=== PATIENT | male | born 1945 | race Caucasian/White ===

== ENCOUNTER 2018-01-14 10:16 | Outpatient (CLI) | payer OTHER ==
[2018-01-14 18:13] LABS: ALBUMIN 4.3 g/dL (3.2-5.5); ALBUMIN/GLOBULIN RATIO 1.7 (1.0-2.2); ALKALINE PHOSPHATASE 64 IU/L (42-121); ALT ALANINE AMINOTRANSFERASE 23 IU/L (10-60); AST ASPARTATE AMINOTRANSFERASE 22 IU/L (10-42); BILIRUBIN,TOTAL 1.2 mg/dL (0.2-1.0); BUN - BLOOD UREA NITROGEN 12 mg/dL (6-20); CALCIUM 9.7 mg/dL (8.5-10.3); CARBON DIOXIDE - CO2 26 mmol/L (21-32); CHLORIDE 91 mmol/L (101-111); CHOL/HDL RATIO 2.8 (<5.0); CHOLESTEROL 118 mg/dL; CREATININE 0.8 mg/dL (0.6-1.2); GFR - MDRD 95 (>89); GLUCOSE 103 mg/dL (70-100); HDL CHOLESTEROL 42 mg/dL; LDL CHOLESTEROL,CALCULATED 52 mg/dL; LDL/HDL RATIO 1.2 (<3.6); SODIUM 125 mmol/L (135-145); TOTAL PROTEIN 6.8 g/dL (6.7-8.2); VLDL CHOLESTEROL 24 mg/dL
== END 2018-01-14 10:17 | disposition home or self-care (01) ==
LOC: LAB.F 10:16
PROVIDERS: ATTEND Internal Medicine
DX: I25.10 Atherosclerotic heart disease of native coronary artery without angina pectoris (principal)
CPT/HCPCS: 36415; 80053; 80061; 83721

== ENCOUNTER 2019-09-16 09:19 | Emergency (ER) | payer OTHER ==
--- NOTE | 2019-09-16 09:40 | ED Physician Documentation ---
PD HPI SYNCOPE - Stated complaint Stated Complaint: FEVER/GLF - Chief complaint Chief Complaint: Trauma Hd/Nk - History obtained from History obtained from: Patient - History of Present Illness Timing - onset: Last night Duration: Minutes (He states he got up from bed last night quickly to go to the bathroom felt lightheaded and then passed out and hit his head on the floor. He has tenderness in the right left forehead. He states his told him he was out for a couple of minutes. He awoke as she was calling EMS and he had her stop sending for help. He had some frontal headache after and today.. vomited x2 after fall. has some pain left trunk, upper arm and lateral hip today.) Preceding symptoms: Light headed. No: Chest pain Associated symptoms: Chest pain (sore lateral lower ribs), Nausea / vomiting. No: Abdominal pain Contributing factors: Just stood up (from sleep in bed) Injury occurred: Fell, Head injury. No: Neck injury Similar symptoms before: Has not had sx before Recently seen: Not recently seen Review of Systems Constitutional: reports: Fever (today), Chills Nose: denies: Rhinorrhea / runny nose, Congestion Throat: denies: Sore throat Cardiac: reports: Chest pain / pressure (lower ribs right and left) Respiratory: reports: Cough (mild today). denies: Dyspnea : denies: Dysuria, Frequency Skin: denies: Rash, Lesions, Laceration (s) Musculoskeletal: denies: Neck pain, Back pain Neurologic: reports: Syncope (just last night; feels okay today). denies: Focal weakness, Altered mental status PD PAST MEDICAL HISTORY - Past Medical History Past Medical History: No Cardiovascular: Hypertension, Atrial fibrillation Respiratory: None Neuro: None Endocrine/Autoimmune: None Musculoskeletal: None - Present Medications Home Medications: Ambulatory Orders Medication Instructions Recorded Confirmed Albuterol Sulfate [Albuterol 2 puffs IH QID #1 hfa.aer.ad 09/16/19 Sulfate Hfa] Amlodipine Besylate 5 mg PO DAILY 09/16/19 09/16/19 Aspirin 81 mg PO DAILY 09/16/19 09/16/19 Atorvastatin Calcium 40 mg PO DAILY 09/16/19 09/16/19 Benzonatate [Tessalon Perle] 100 - 200 mg PO TID PRN #30 capsule 09/16/19 Bumetanide 1 mg PO DAILY 09/16/19 09/16/19 Dabigatran Etexilate Mesylate 150 mg PO BID 09/16/19 09/16/19 [Pradaxa] Doxycycline Monohydrate 100 mg PO BID #14 tablet 09/16/19 Losartan [Cozaar] 25 mg PO DAILY 09/16/19 09/16/19 Metoprolol Tartrate 25 mg PO DAILY 09/16/19 09/16/19 Omeprazole 20 mg PO DAILY 09/16/19 09/16/19 Potassium Chloride 10 meq PO DAILY 09/16/19 09/16/19 Tamsulosin [Flomax] 0.4 mg PO DAILY 09/16/19 09/16/19 metFORMIN [Glucophage] 500 mg PO ONCE 09/16/19 09/16/19 - Allergies Allergies/Adverse Reactions: Allergies Allergy/AdvReac Type Severity Reaction Status Date / Time No Known Drug Allergies Allergy Verified 09/16/19 09:29 PD ED PE NORMAL - Vitals Vital signs reviewed: Yes - General General: Alert and oriented X 3, No acute distress, Well developed/nourished - HEENT HEENT: Pharynx benign - Neck Neck: Supple, no meningeal sign, No adenopathy - Cardiac Cardiac: No murmur. No: RRR (irregular but no murmur) - Respiratory Respiratory: No: Clear bilaterally (mostly clear with some mild exp delayed phase. No coarse sounds. Some tenderness lower posterolateral chest both sides, right more than left actually. No crepitance. ) - Abdomen Abdomen: Soft, Non tender - Extremities Extremities: Other (The right lateral hip is some tender without any deformity. He has a good range of motion of the hip no pain with walking. The right lateral upper arm shows some bruising along the lateral biceps area. No joint pain in the elbow or shoulder. He has full range of motion extension of the shoulder and elbow.) Results - Vitals Vitals: Vital Signs - 24 hr 09/16/19 09/16/19 09/16/19 09:29 09:32 10:02 Temperature 38.7 C H 37.9 C H Heart Rate 107 H 93 82 Heart Rate [ Sitting] Heart Rate [ Standing] Heart Rate [ Supine] Respiratory 20 16 16 Rate Blood Pressure 144/69 H 132/78 H 132/74 H Blood Pressure [Sitting] Blood Pressure [Standing] Blood Pressure [Supine] O2 Saturation 94 98 98 09/16/19 09/16/19 09/16/19 10:30 10:34 11:00 Temperature 37.7 C H Heart Rate 86 86 Heart Rate [ 97 Sitting] Heart Rate [ 102 H Standing] Heart Rate [ 86 Supine] Respiratory 16 16 Rate Blood Pressure 132/86 H 134/78 H Blood Pressure 118/77 [Sitting] Blood Pressure 115/69 [Standing] Blood Pressure 134/73 H [Supine] O2 Saturation 98 99 09/16/19 09/16/19 09/16/19 11:30 12:00 12:30 Temperature 36.9 C Heart Rate 86 85 85 Heart Rate [ Sitting] Heart Rate [ Standing] Heart Rate [ Supine] Respiratory 16 16 16 Rate Blood Pressure 132/68 H 130/74 132/80 H Blood Pressure [Sitting] Blood Pressure [Standing] Blood Pressure [Supine] O2 Saturation 99 98 100 09/16/19 13:03 Temperature 36.9 C Heart Rate 85 Heart Rate [ Sitting] Heart Rate [ Standing] Heart Rate [ Supine] Respiratory 16 Rate Blood Pressure 132/80 H Blood Pressure [Sitting] Blood Pressure [Standing] Blood Pressure [Supine] O2 Saturation 99 Oxygen O2 Source Room air - Labs Labs: Laboratory Tests 09/16/19 09/16/19 09/16/19 09:58 09:58 09:58 WBC 13.2 H RBC 4.09 L Hgb 13.3 L Hct 37.9 L MCV 92.7 MCH 32.5 H MCHC 35.1 RDW 13.4 Plt Count 185 MPV 10.1 Neut # (Auto) 11.5 H Lymph # (Auto) 0.6 L [place] # (Auto) 0.8 Eos # (Auto) 0.0 Baso # (Auto) 0.0 Absolute Nucleated RBC 0.00 Nucleated RBC % 0.0 PT 13.7 H INR 1.2 APTT 37.3 H Sodium 136 Potassium 3.5 Chloride 105 Carbon Dioxide 23 Anion Gap 8.0 BUN 19 Creatinine 0.9 Estimated GFR (MDRD) 83 L Glucose 139 H Lactic Acid Calcium 9.3 Magnesium 1.6 L Total Bilirubin 1.5 H AST 22 ALT 24 Alkaline Phosphatase 82 Total Protein 7.1 Albumin 4.2 Globulin 2.9 Albumin/Globulin Ratio 1.4 Lipase 30 Urine Color Urine Clarity Urine pH Ur Specific [place] Urine Protein Urine Glucose (UA) Urine Ketones Urine Occult Blood Urine Nitrite Urine Bilirubin Urine Urobilinogen Ur Leukocyte Esterase Ur Microscopic Review Urine Culture Comments 09/16/19 09/16/19 11:04 11:05 WBC RBC Hgb Hct MCV MCH MCHC RDW Plt Count MPV Neut # (Auto) Lymph # (Auto) [place] # (Auto) Eos # (Auto) Baso # (Auto) Absolute Nucleated RBC Nucleated RBC % PT INR APTT Sodium Potassium Chloride Carbon Dioxide Anion Gap BUN Creatinine Estimated GFR (MDRD) Glucose Lactic Acid 1.4 Calcium Magnesium Total Bilirubin AST ALT Alkaline Phosphatase Total Protein Albumin Globulin Albumin/Globulin Ratio Lipase Urine Color DARK YELLOW Urine Clarity CLEAR Urine pH 6.0 Ur Specific [place] 1.020 Urine Protein NEGATIVE Urine Glucose (UA) NEGATIVE Urine Ketones NEGATIVE Urine Occult Blood NEGATIVE Urine Nitrite NEGATIVE Urine Bilirubin NEGATIVE Urine Urobilinogen 1 (NORMAL) Ur Leukocyte Esterase NEGATIVE Ur Microscopic Review NOT INDICATED Urine Culture Comments NOT INDICATED - Rads (name of study) head CT Radiology: Prelim report reviewed (no ICH nor acute process), See rad report Chest CT Radiology: Prelim report reviewed (Likely nondisplaced fracture of the 10th rib. Diffuse small infiltrates with groundglass appearance most likely consistent with viral pneumonia), See rad report PD MEDICAL DECISION MAKING - ED course Complexity details: reviewed results (No intracranial hemorrhage. His chest x- ray shows a possible rib fracture. He is a bit tender in the area. Clinically he is stable with it. He does have infiltrates consistent with Ashlyn pneumonia.), considered differential (The patient is on blood thinners and did have a syncopal episode and hit his head. CT of the head will be done to ensure no intracranial hemorrhage. He is not having any notable concussive symptoms into today. He is sore in his arm and hip which have good range of motion and no bony tenderness. He has some tenderness in the right lower correction left lower chest and also has some cough and fever. He will be in the scanner for his head anyway so we can more accurately assess his cough and fever with a CT of the chest as well as evaluate for any rib injuries.), d/w patient Departure - Departure Disposition: 01 Home, Self Care Clinical Impression: Postural syncope, Anticoagulant long-term use, Pneumonia due to COVID-19 virus Head contusion Qualifiers: Encounter type: initial encounter Contusion of head detail: scalp Qualified Code(s): S00.03XA - Contusion of scalp, initial encounter Rib fracture Qualifiers: Encounter type: initial encounter Rib fracture type: single rib Fracture type: closed Laterality: unspecified laterality Qualified Code(s): S22.39XA - Fracture of one rib, unspecified side, initial encounter for closed fracture Condition: Stable Record reviewed to determine appropriate education?: Yes Instructions: ED Pneumonia Adult Follow-Up: Raffi Simms MD [Primary Care Provider] - Prescriptions: Albuterol Sulfate [Albuterol Sulfate Hfa] 2 puffs IH QID #1 hfa.aer.ad Benzonatate [Tessalon Perle] 100 - 200 mg PO TID PRN #30 capsule PRN Reason: Cough Doxycycline Monohydrate 100 mg PO BID #14 tablet Comments: CT did not show any signs of bleeding or other injury findings. It does sound like he had some mild concussive symptoms with being knocked out and nauseous. Light activity only for a day or 2. Your CT of the chest showed a likely nondisplaced fracture. As minimal symptoms as you have, I think just Tylenol every 4-6 hours for that is reasonable. Adequate hydration but do not over hydrate at home. Regular food intake. Your CT scan did show changes consistent with coded pneumonia. Sometimes there can be secondary bacterial infections in with that as well so we will treated with an antibiotic, and inhaler, and medicine for the cough. Isolate yourself from your a bit as you can in the house and avoid others for the time being. The CDC recommends when you are having no fevers and aches and less cough and then 3 days later to be able to be less quarantined though there may still be some viral shedding for a couple of weeks. Return if worsening breathing. Discharge Date/Time: 09/16/19 13:04
[2019-09-16] MEDS ORDERED: ACETAMINOPHEN 325 MG TABLET PO STA (10:13)
[2019-09-16] MEDS ORDERED: SODIUM CHLORIDE 0.9% 500 ML IV ONE (10:33)
[2019-09-16 10:41] LABS: BASOPHILS % (AUTO) 0.2 %; EOSINOPHILS % (AUTO) 0.2 %; HGB - HEMOGLOBIN 13.3 g/dL (14.0-18.0); LYMPHOCYTES # (AUTO) 0.6 10^3/uL (1.5-3.5); LYMPHOCYTES % (AUTO) 4.7 %; MEAN CORPUSCULAR HEMOGLOBIN 32.5 pg (27.0-31.0); MEAN CORPUSCULAR HGB CONC 35.1 g/dL (32.0-36.0); MEAN CORPUSCULAR VOLUME 92.7 fL (80.0-94.0); MEAN PLATELET VOLUME 10.1 fL (7.4-11.4); MONOCYTES # (AUTO) 0.8 10^3/uL (0.0-1.0); MONOCYTES % (AUTO) 6.4 %; NEUTROPHILS # (AUTO) 11.5 10^3/uL (1.5-6.6); NEUTROPHILS % (AUTO) 87.3 %; PLT - PLATELET COUNT 185 10^3/uL (130-450); RED BLOOD COUNT 4.09 10^6/uL (4.70-6.10); RED CELL DISTRIBUTION WIDTH 13.4 % (12.0-15.0); WHITE BLOOD COUNT 13.2 x10^3/uL (4.8-10.8)
[2019-09-16 10:46] LABS: INR 1.2 (0.8-1.2); PT - PROTHROMBIN TIME 13.7 secs (9.9-12.6)
[2019-09-16 10:50] LABS: ALBUMIN 4.2 g/dL (3.2-5.5); ALBUMIN/GLOBULIN RATIO 1.4 (1.0-2.2); BILIRUBIN,TOTAL 1.5 mg/dL (0.2-1.0); CALCIUM 9.3 mg/dL (8.5-10.3); CREATININE 0.9 mg/dL (0.6-1.2); MAGNESIUM 1.6 mg/dL (1.7-2.8); TOTAL PROTEIN 7.1 g/dL (6.7-8.2)
[2019-09-16 10:53] LABS: PARTIAL THROMBOPLASTIN TIME 37.3 secs (24.9-33.3)
--- NOTE | 2019-09-16 11:07 | CT Report ---
Reason: fall/hit head; on Pradaxa Procedure Date: 09/16/2019 Accession Number: [id number] / [id number] Procedure: CT - HEAD WO CPT Code: Final Report FULL RESULT: EXAM: CT HEAD EXAM DATE: 09/16/2019 10:51 AM. CLINICAL HISTORY: Fall/hit head; on Pradaxa. COMPARISON: None. TECHNIQUE: Multiaxial CT images were obtained from the foramen magnum to the vertex. Reformats: Sagittal and coronal. IV contrast: None. In accordance with CT protocol optimization, one or more of the following dose reduction techniques were utilized for this exam: automated exposure control, adjustment of mA and/or KV based on patient size, or use of iterative reconstructive technique. FINDINGS: Parenchyma: No intraparenchymal hemorrhage. No evidence of mass, midline shift, or CT findings of infarction. Poe-white differentiation is distinct. Extraaxial Spaces: Normal for age. No subdural or epidural collections identified. Note is made of a partially empty sella turcica. Ventricles: Normal in size and position. Sinuses and Orbits: Imaged paranasal sinuses, orbits, and mastoids show no significant abnormality. Bones: No evidence of fracture or calvarial defect. Other: Moderate vascular calcifications are seen involving intracranial ICA. IMPRESSION: 1. Negative noncontrast CT scan of the head. No acute abnormality. RADIA
--- NOTE | 2019-09-16 11:29 | CT Report ---
Reason: fall last night Procedure Date: 09/16/2019 Accession Number: [id number] / [id number] Procedure: CT - CHEST WO CPT Code: Final Report FULL RESULT: EXAM: CT CHEST EXAM DATE: 09/16/2019 10:55 AM. CLINICAL HISTORY: Fall last night. COMPARISONS: None. TECHNIQUE: Routine helical CT imaging was performed through the chest. IV contrast: None. Reconstructions: Coronal and sagittal. In accordance with CT protocol optimization, one or more of the following dose reduction techniques were utilized for this exam: automated exposure control, adjustment of mA and/or KV based on patient size, or use of iterative reconstructive technique. FINDINGS: Lungs/Pleura: Moderate severity right middle lobe consolidation with moderate consolidation and groundglass opacity within the posterior medial right lower lobe and associated peribronchial thickening. There is very mild perivascular groundglass and nodular infiltrate within the left lower lobe and mild nodular infiltrate within both upper lobes. No central obstructive lesions demonstrated. No pleural effusion. No pneumothorax. Mediastinum: There are multiple small and borderline enlarged mediastinal lymph nodes, maximum short axis 1.0 cm. No hilar or axillary adenopathy. Borderline cardiac enlargement. No pericardial effusion. Coronary artery calcifications and possible grafts demonstrated. Status post median sternotomy. Mild streaky and linear density within the anterior mediastinal/retrosternal fat is likely postoperative in nature. Bones: Probable nondisplaced posterolateral left 10th rib fracture. No other definite acute abdomen maladies. Findings consistent with old, healed right rib fractures. Visualized Abdomen: There is a 1.4 cm presumed splenule. No definite acute abdomen. Other: None. IMPRESSION: 1. Multifocal pulmonary densities including consolidation within the right middle lobe and right lower lobe and additional mild groundglass opacities and nodular infiltrates within the left lower lobe and bilateral upper lobes. Multifocal pneumonia is a primary consideration. 2. Probable nondisplaced posterolateral left 10th rib fracture. 3. Borderline mediastinal adenopathy. RADIA
[2019-09-16 12:21] LABS: BILIRUBIN,URINE NEGATIVE (NEGATIVE); GLUCOSE, URINE (UA) NEGATIVE (NEGATIVE); KETONES,URINE (UA) NEGATIVE (NEGATIVE); LEUKOCYTE ESTERASE, URINE NEGATIVE (NEGATIVE); NITRITE,URINE NEGATIVE (NEGATIVE); OCCULT BLOOD,URINE NEGATIVE (NEGATIVE); PROTEIN,URINE NEGATIVE (NEGATIVE); UROBILINOGEN,URINE 1 (NORMAL) E.U./dL (NORMAL)
[2019-09-16 12:23] LABS: CLARITY,URINE CLEAR (CLEAR)
[2019-09-16 13:04] VITALS: BP 132/80
== END 2019-09-16 13:04 | disposition home or self-care (01) ==
LOC: ED 09:19
DX: U07.1 COVID-19 (principal); J12.89 Other viral pneumonia; S00.03XA Contusion of scalp, initial encounter; S22.32XA Fracture of one rib, left side, initial encounter for closed fracture; W18.30XA Fall on same level, unspecified, initial encounter; Y92.013 Bedroom of single-family (private) house as the place of occurrence of the external cause; I48.91 Unspecified atrial fibrillation; Z79.01 Long term (current) use of anticoagulants; I10 Essential (primary) hypertension; M25.551 Pain in right hip; S40.021A Contusion of right upper arm, initial encounter
CPT/HCPCS: 36415; 70450; 71250; 80053; 81003; 83605; 83690; 83735; 85025; 85610; 85730; 87635; 99284; A9270; 81001; 81599; 87086

== ENCOUNTER 2019-12-06 09:29 | Outpatient (CLI) | payer MEDICARE, OTHER ==
--- NOTE | 2019-12-06 10:07 | SLEEP CARE CONSULTATION ---
Information from patient questionnaire entered by Melba Thompson. I have reviewed and concur with the information entered by Melba Thompson. This document represents the service I personally performed and the decisions made by me, Deuce Mejia MD, [facility]. History of Present Illness Service Date and Time: 12/06/2019928 Reason for Visit: New patient Chief Complaint: reports: Snoring, Excessive daytime sleepiness (AT TIMES), Observed pauses in breathing Duration of Symptoms: 20 years Usual bedtime: 2200 Time it takes to fall asleep: 5 minutes Snores at night: Yes Observed to quit breathing while asleep: Yes Sleeps alone due to snoring: No Number of times waking at night: 1-3 Reasons for waking at night: reports: Bathroom, Other (sometimes reflux) Recalls having dreams: Yes Usually gets out of bed at: [id number] Feels refreshed in the morning: Yes Morning headache: No Sleepy or fatigued during the day: No (early evening, yes) Ever fallen asleep while driving: Yes (once) Takes day naps: No Prior sleep studies: Yes Additional HPI information: The patient was diagnosed with severe MARJORIE in 2007. The AHI was 44. He tried CPAP for just a few days and quit because he was not able to fall asleep with it on. In 2013 he went back to the [facility] and was fitted with an oral appliance. He also could not tolerate it. He is here today because his insists that he be treated. She sees him snore and quit breathing. He has hypertension and atrial fibrillation. 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 Patient is and lives in [place]. Have you smoked in the past 12 months: No Cigarettes per day (20/pack): 5 Quit date: 1992 Alcohol use: No Caffeine use: No Allergies and Home Medications Drug allergies reviewed: Yes Home medication list reviewed: Yes Review of Systems Weight gain over past 5 years: 20 Weight loss over past 5 years: 10 Cardiovascular: reports: high blood pressure (without meds), irregular heart rate or pulse, leg or foot swelling Respiratory: denies: shortness of breath, wheeze, sputum production, chronic cough, other Gastrointestinal: reports: heartburn (on medication) Urinary: denies: incontinence, frequency, urgency, impotence, other Neurological: denies: headaches, seizure, head trauma, disorientation, speech dysfunction, gait or balance problems, fainting or unconsciousness, other Psychiatric: denies: Attention Deficit Hyperactivity, anxiety, depression, mood disorder, claustrophobia, other Ear/Nose/Throat: denies: nasal congestion, sinus problems, nose bleeds, dry mouth/throat, hoarseness, injury to nose, tonsillectomy, wisdom teeth removed, other Endocrine: denies: thyroid disease, history of goiter, sluggishness, too hot or cold, excessive thirst, increased appetite, increased urination, unexplained weakness, other Musculoskeletal: reports: neck pain (stiff when turning) Immunologic: denies: sneezing, rash, itching, allergies to food or environment, other Physical Exam Vital signs obtained and entered by: Exam was not performed due to the COVID-19 pandemic. Height: 5 ft 8 in Weight: 220 lb Body Mass Index: 33.4 BMI Classification: Obese Impression and Plan IMPRESSION: 1. Obstructive Sleep Apnea-Hypopnea Syndrome, severe, as previously diagnosed. He is symptomatic for loud and irregular snoring, unrefreshed sleep, and daytime hypersomnolence. Narrow oropharynx and obesity are common predisposing factors for obstructive sleep apnea-hypopnea syndrome. Pathophysiology of sleep- disordered breathing was discussed. I recommend proceeding to polysomnography to confirm the diagnosis and to assess severity. If he has significant sleep disordered breathing, a manual CPAP titration study will also be performed to find the optimal treatment pressure. I informed the patient of what the sleep studies involve and after some discussion, he agreed to proceed. Plan: 1. Schedule an in-laboratory polysomnography. 2. Avoid long distance driving or when feeling sleepy. 3. Avoid alcohol, sedative and muscle relaxant around bedtime. 4. Attempt to lose weight. 5. Return in 1 to 2 weeks after the study to discuss results and initiate therapy. Visit Type: In Office Time Spent with Patient (minutes): 15 Provider Statement: I spent 100% of the Face to Face Visit with the patient with greater than 50% spent counseling the patient and coordination of care.
== END 2019-12-06 09:30 | disposition home or self-care (01) ==
LOC: SC 09:29
PROVIDERS: ATTEND Internal Medicine Pulmonary Disease
DX: G47.33 Obstructive sleep apnea (adult) (pediatric) (principal); I10 Essential (primary) hypertension; I49.9 Cardiac arrhythmia, unspecified; E66.9 Obesity, unspecified; Z68.33 Body mass index [BMI] 33.0-33.9, adult
CPT/HCPCS: 99203; 99212

== ENCOUNTER 2019-12-22 20:25 | Outpatient (CLI) | payer OTHER | END 2019-12-22 20:26 | disposition home or self-care (01) | LOC: SC 20:25 | PROVIDERS: ATTEND Internal Medicine Pulmonary Disease | DX: G47.33 Obstructive sleep apnea (adult) (pediatric) (principal); I48.92 Unspecified atrial flutter | CPT/HCPCS: 95810 ==

== ENCOUNTER 2020-01-17 17:20 | Inpatient (IN) | payer OTHER, MEDICARE ==
[2020-01-17 17:46] LABS: BILIRUBIN,URINE NEGATIVE (NEGATIVE); GLUCOSE, URINE (UA) NEGATIVE (NEGATIVE); KETONES,URINE (UA) NEGATIVE (NEGATIVE); LEUKOCYTE ESTERASE, URINE LARGE (NEGATIVE); NITRITE,URINE POSITIVE (NEGATIVE); OCCULT BLOOD,URINE LARGE (NEGATIVE); PH,URINE 6.5 PH (5.0-7.5); PROTEIN,URINE TRACE mg/dL (NEGATIVE); UROBILINOGEN,URINE 0.2 (NORMAL) E.U./dL (NORMAL)
[2020-01-17 17:48] LABS: CLARITY,URINE CLOUDY (CLEAR)
[2020-01-17 17:52] LABS: BASOPHILS % (AUTO) 0.3 %; EOSINOPHILS % (AUTO) 0.1 %; HGB - HEMOGLOBIN 14.4 g/dL (14.0-18.0); LYMPHOCYTES # (AUTO) 1.4 10^3/uL (1.5-3.5); LYMPHOCYTES % (AUTO) 10.4 %; MEAN CORPUSCULAR HEMOGLOBIN 33.2 pg (27.0-31.0); MEAN CORPUSCULAR HGB CONC 35.5 g/dL (32.0-36.0); MEAN CORPUSCULAR VOLUME 93.5 fL (80.0-94.0); MONOCYTES # (AUTO) 0.9 10^3/uL (0.0-1.0); MONOCYTES % (AUTO) 6.3 %; NEUTROPHILS # (AUTO) 11.3 10^3/uL (1.5-6.6); PLT - PLATELET COUNT 147 10^3/uL (130-450); RED BLOOD COUNT 4.34 10^6/uL (4.70-6.10); RED CELL DISTRIBUTION WIDTH 12.2 % (12.0-15.0); WHITE BLOOD COUNT 13.7 x10^3/uL (4.8-10.8)
[2020-01-17 17:53] LABS: BACTERIA,URINE Many /HPF (None Seen); RBC,URINE Y /HPF (0-5); SQUAMOUS EPITHELIAL CELL,UR NONE SEEN (<= Few); WBC CLUMPS,URINE PRESENT
--- NOTE | 2020-01-17 17:54 | ED Physician Documentation ---
History of Present Illness - Stated complaint Stated Complaint: MALE - Chief complaint Chief Complaint: UTI - History obtained from History obtained from: Patient - History of Present Illness Timing: How many days ago (3) - Additonal information Additional information: 74-year-old male presents to the emergency department with 3 days of dysuria, urinary urgency and frequency. He reports that this morning he had a fever of 101. He denies any nausea or vomiting. He does endorse that he has had diarrhea for the last 2 days. he denies dyspnea or chest pain. he has baseline unchage pedal edema since a CABG in 2018 Past medical history most significant for hypertension, atrial fibrillation and a four-vessel CABG in March 2019. meds: Metformin, losartan, metoprolol, Lipitor, omeprazole, Flomax, Bumex, Pradaxa, potassium chloride 1750: Patient meets the criteria for sepsis with fever, tachycardia as well as an infection in the urine. Sepsis protocol initiated 30 ml/kg of IVF. Ceftriaxone for UTI. pertinent labs pending 183: Notified by nursing staff that patient has significant hypertension during the fluid resuscitation. Given that he has no elevation in his lactic acid we will stop the fluid bolus at this time. 20 mg of labetalol was ordered Review of Systems Constitutional: reports: Fever, Chills Ears: denies: Loss of hearing, Ear pain Nose: denies: Rhinorrhea / runny nose Throat: denies: Dental pain / toothache Cardiac: denies: Chest pain / pressure, Palpitations Respiratory: denies: Dyspnea, Cough GI: reports: Abdominal Pain, Diarrhea. denies: Abdominal Swelling, Nausea, Vomiting, Constipation, Hematemesis, Bloody / black stool : reports: Dysuria, Frequency, Hesitancy. denies: Hematuria Skin: denies: Rash, Lesions Musculoskeletal: denies: Extremity pain, Joint pain Neurologic: reports: Generalized weakness, Focal weakness, Numbness PD PAST MEDICAL HISTORY - Past Medical History Cardiovascular: Hypertension, Atrial fibrillation Respiratory: None Neuro: None Endocrine/Autoimmune: None GI: None : None HEENT: None Psych: None Musculoskeletal: None Derm: None - Past Surgical History Past Surgical History: No - Present Medications Home Medications: Ambulatory Orders Medication Instructions Recorded Confirmed Albuterol Sulfate [Albuterol 2 puffs IH QID #1 hfa.aer.ad 09/16/19 Sulfate Hfa] Amlodipine Besylate 5 mg PO DAILY 09/16/19 09/16/19 Aspirin 81 mg PO DAILY 09/16/19 09/16/19 Atorvastatin Calcium 40 mg PO DAILY 09/16/19 09/16/19 Benzonatate [Tessalon Perle] 100 - 200 mg PO TID PRN #30 capsule 09/16/19 Bumetanide 1 mg PO DAILY 09/16/19 09/16/19 Dabigatran Etexilate Mesylate 150 mg PO BID 09/16/19 09/16/19 [Pradaxa] Doxycycline Monohydrate 100 mg PO BID #14 tablet 09/16/19 Losartan [Cozaar] 25 mg PO DAILY 09/16/19 09/16/19 Metoprolol Tartrate 25 mg PO DAILY 09/16/19 09/16/19 Omeprazole 20 mg PO DAILY 09/16/19 09/16/19 Potassium Chloride 10 meq PO DAILY 09/16/19 09/16/19 Tamsulosin [Flomax] 0.4 mg PO DAILY 09/16/19 09/16/19 metFORMIN [Glucophage] 500 mg PO ONCE 09/16/19 09/16/19 - Allergies Allergies/Adverse Reactions: Allergies Allergy/AdvReac Type Severity Reaction Status Date / Time No Known Drug Allergies Allergy Verified 09/16/19 09:29 - Social History Does the pt smoke?: No Smoking Status: Never smoker Does the pt drink ETOH?: No Does the pt have substance abuse?: No PD ED PE EXPANDED - General General: Alert. No: No acute distress, Well developed/nourished - HEENT HEENT: Atraumatic - Neck Neck: Supple w/out meningeal sx, No tenderness. No: Stiff neck, Brudzinki's, Thyroid enlarged / mass, Soft tissue TTP - Cardiac Cardiac: Regular Rate, Tachy, Radial strong equal, Femoral strong equal, Pedal strong equal, Cap refill < 2 sec - Respiratory Respiratory: Clear to ausultation ross. No: Distress, Labored - Abdomen Abdomen: Normal Bowel sounds, Suprapubic - Back Back: Normal exam, Normal ROM. No: CVA TTP right, CVA TTP left - Derm Derm: Warm and dry - Neuro Neuro: Alert and Oriented X 3. No: Confused - GCS Eye Opening: Spontaneous Motor: Obeys Commands Verbal: Oriented Total: 15 Results - Vitals Vitals: Vital Signs - 24 hr 01/17/20 01/17/20 01/17/20 17:23 18:05 18:35 Temperature 37.8 C H Heart Rate 131 H 118 H 115 H Respiratory 18 29 H 24 Rate Blood Pressure 145/77 H 183/118 H 223/124 H O2 Saturation 97 99 100 01/17/20 01/17/20 01/17/20 18:55 19:03 19:17 Temperature 38.2 C H Heart Rate 119 H 109 H 111 H Respiratory 26 H 27 H 25 H Rate Blood Pressure 182/102 H 182/102 H 192/106 H O2 Saturation 99 98 97 01/17/20 19:24 Temperature Heart Rate 110 H Respiratory 24 Rate Blood Pressure 202/117 H O2 Saturation 99 Oxygen O2 Source Room air - Labs Labs: Laboratory Tests 01/17/20 01/17/20 01/17/20 17:40 17:40 17:40 WBC 13.7 H RBC 4.34 L Hgb 14.4 Hct 40.6 L MCV 93.5 MCH 33.2 H MCHC 35.5 RDW 12.2 Plt Count 147 MPV 10.0 Neut # (Auto) 11.3 H Lymph # (Auto) 1.4 L Ulster # (Auto) 0.9 Eos # (Auto) 0.0 Baso # (Auto) 0.0 Absolute Nucleated RBC 0.00 Nucleated RBC % 0.0 Sodium 134 L Potassium 3.5 Chloride 99 L Carbon Dioxide 27 Anion Gap 8.0 BUN 17 Creatinine 1.1 Estimated GFR (MDRD) 66 L Glucose 139 H Lactic Acid Calcium 9.6 Total Bilirubin 2.2 H AST 21 ALT 26 Alkaline Phosphatase 85 Total Protein 8.2 Albumin 4.7 Globulin 3.5 Albumin/Globulin Ratio 1.3 Lipase 29 Urine Color YELLOW Urine Clarity CLOUDY Urine pH 6.5 Ur Specific Hewett 1.010 Urine Protein TRACE Urine Glucose (UA) NEGATIVE Urine Ketones NEGATIVE Urine Occult Blood LARGE H Urine Nitrite POSITIVE H Urine Bilirubin NEGATIVE Urine Urobilinogen 0.2 (NORMAL) Ur Leukocyte Esterase LARGE H Urine RBC Y Urine WBC >25 H Urine WBC Clumps PRESENT Ur Squamous Epith Cells NONE SEEN Urine Bacteria Many H Ur Microscopic Review INDICATED Urine Culture Comments INDICATED 01/17/20 17:40 WBC RBC Hgb Hct MCV MCH MCHC RDW Plt Count MPV Neut # (Auto) Lymph # (Auto) Ulster # (Auto) Eos # (Auto) Baso # (Auto) Absolute Nucleated RBC Nucleated RBC % Sodium Potassium Chloride Carbon Dioxide Anion Gap BUN Creatinine Estimated GFR (MDRD) Glucose Lactic Acid 1.0 Calcium Total Bilirubin AST ALT Alkaline Phosphatase Total Protein Albumin Globulin Albumin/Globulin Ratio Lipase Urine Color Urine Clarity Urine pH Ur Specific Hewett Urine Protein Urine Glucose (UA) Urine Ketones Urine Occult Blood Urine Nitrite Urine Bilirubin Urine Urobilinogen Ur Leukocyte Esterase Urine RBC Urine WBC Urine WBC Clumps Ur Squamous Epith Cells Urine Bacteria Ur Microscopic Review Urine Culture Comments PD MEDICAL DECISION MAKING - ED course Complexity details: reviewed results, considered differential, d/w patient, d/w family ED course: 74-year-old gentleman presents to the emergency department with 3 days of dysuria urgency and frequency. He also notes a fever at home of 101 this a.m. On initial presentation he was fairly tachycardic with a heart rate in the 130s. His urine was noted to be positive for infection. We did initiate the sepsis protocol early and diagnosed sepsis properly after presentation. - While receiving the fluid bolus patient was noted to develop pretty significant hypertension therefore the fluid bolus was stopped. It should be noted that his lactic acid was normal. - I have lower suspicion for acute pyelonephritis as this gentleman has no flank pain. Prostatitis remains in the differential but the antibiotics of choice for both it remains the same. Will defer gentamicin in this gentleman as my suspicion for pseudomonal coinfection is relatively low - I spoken to [facility] hospitalist Dr. Neumann who has agreed to admit the patient. I discussed findings with family. Departure - Departure Disposition: 66 [facility] DC/Xfer Clinical Impression: UTI (urinary tract infection) Qualifiers: Urinary tract infection type: acute cystitis Hematuria presence: without hematuria Qualified Code(s): N30.00 - Acute cystitis without hematuria Sepsis Qualifiers: Sepsis type: sepsis due to unspecified organism Sepsis acute organ dysfunction status: without acute organ dysfunction Qualified Code(s): A41.9 - Sepsis, unspecified organism
[2020-01-17] MEDS ORDERED: LACTATED RINGERS 2,857.62 ML IV STA (17:56)
[2020-01-17] MEDS ORDERED: cefTRIAXone 1 GM in SODIUM CHLORIDE 0.9% MINIBAG 100 ML IV STA (17:56)
[2020-01-17 18:07] LABS: ALBUMIN 4.7 g/dL (3.2-5.5); ALBUMIN/GLOBULIN RATIO 1.3 (1.0-2.2); BILIRUBIN,TOTAL 2.2 mg/dL (0.2-1.0); CALCIUM 9.6 mg/dL (8.5-10.3); CREATININE 1.1 mg/dL (0.6-1.2); TOTAL PROTEIN 8.2 g/dL (6.7-8.2)
[2020-01-17] MEDS ORDERED: cefTRIAXone 1 GM VIAL ONE (18:09)
[2020-01-17] MEDS ORDERED: LABETALOL 20 MG/4 ML SYRINGE IVP STA ×2 (18:43→19:26)
[2020-01-17] MEDS ORDERED: ONDANSETRON 4 MG/2 ML VIAL IVP PRN (19:22)
[2020-01-17] MEDS ORDERED: oxyCODONE 5 MG TABLET PO PRN (19:22)
[2020-01-17] MEDS ORDERED: SODIUM CHLORIDE FLUSH 0.9% 10 ML SYRINGE IVP PRN (19:22)
--- NOTE | 2020-01-17 19:26 | HISTORY & PHYSICAL EXAMINATION ---
Chief Complaint - Chief Complaint Chief Complaint: fever, dysuria, urgency History of Present Illness - Admitted From Admitted From:: [facility] ED - History Obtained From Records Reviewed: yes History obtained from: patient - History of Present Illness HPI Comment/Other: Patient is a 74-year-old male with history of CAD status post 11 stents and a quadruple bypass, hyperlipidemia, atrial fibrillation on Pradaxa, prediabetic, GERD and BPH who presented to the ED with complaints of dysuria and increased urinary frequency. He also reports change in the coloration of his urine. The initial stream appears cloudy and clears up as he continues to urinate. His symptoms started 2 days ago. He also reported temperature of 101 Fahrenheit at home. He has been having general body aches for the past couple of days. He called his primary care physician who advised him to come to the emergency room for evaluation. He was found to be tachycardic in the emergency room with a heart rate as high as 120s. He also had a WBC of 13.7 and urinanalysis showed Positive urine nitrites greater than 25 white blood cells and many bacteria. As a result of his clinical appearance he was presented for admission for further treatment. At bedside he is resting comfortably. He denies chest pain, dyspnea, abdominal pain, nausea or vomiting. He has a trace to +1 lower extremity edema bilaterally. History - Past Medical History Cardiovascular: reports: Hypertension, Coronary artery disease (s/p 11 stents and a quadriple bypass), Atrial fibrillation Respiratory: reports: None Neuro: reports: None Endocrine/Autoimmune: reports: Other (pre-diabetic) GI: reports: GERD : reports: Benign prostate hypertrophy HEENT: reports: None Psych: reports: None Musculoskeletal: reports: None Derm: reports: None MRSA Hx?: No - Past Surgical History General: reports: Appendectomy Cardiovascular: reports: CABG, Coronary stent, Other - Family & Social History Family History Comment/Other: Extensive family history of coronary artery diseas e and hyperlipidemia. He is 1 of 11 children who all have coronary artery disease. His father from an [place]. Living arrangement: At home Living Situation: With spouse/s.o. Social History Notes: He denies alcohol, tobacco or illicit drug use. 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 - POLST Patient has POLST: No POLST Status: Full Code Meds/Allgy - Home Medications Home Medications: Ambulatory Orders Medication Instructions Recorded Confirmed Albuterol Sulfate [Albuterol 2 puffs IH QID #1 hfa.aer.ad 09/16/19 Sulfate Hfa] Amlodipine Besylate 5 mg PO DAILY 09/16/19 09/16/19 Aspirin 81 mg PO DAILY 09/16/19 09/16/19 Atorvastatin Calcium 40 mg PO DAILY 09/16/19 09/16/19 Benzonatate [Tessalon Perle] 100 - 200 mg PO TID PRN #30 capsule 09/16/19 Bumetanide 1 mg PO DAILY 09/16/19 09/16/19 Dabigatran Etexilate Mesylate 150 mg PO BID 09/16/19 09/16/19 [Pradaxa] Doxycycline Monohydrate 100 mg PO BID #14 tablet 09/16/19 Losartan [Cozaar] 25 mg PO DAILY 09/16/19 09/16/19 Metoprolol Tartrate 25 mg PO DAILY 09/16/19 09/16/19 Omeprazole 20 mg PO DAILY 09/16/19 09/16/19 Potassium Chloride 10 meq PO DAILY 09/16/19 09/16/19 Tamsulosin [Flomax] 0.4 mg PO DAILY 09/16/19 09/16/19 metFORMIN [Glucophage] 500 mg PO ONCE 09/16/19 09/16/19 - Allergies Allergies/Adverse Reactions: Allergies Allergy/AdvReac Type Severity Reaction Status Date / Time No Known Drug Allergies Allergy Verified 09/16/19 09:29 Review of Systems - Constitutional Constitutional: reports: Fever - Eyes Eyes: denies: Pain - Ears, Nose & Throat Ears, Nose & Throat: denies: Ear pain - Cardiovascular Cariovascular: reports: Irregular heart rate. denies: Chest pain, Edema, Exertional dyspnea - Respiratory Respiratory: denies: Cough, Wheezing, SOB at rest, SOB with exertion - Gastrointestinal Gastrointestinal: denies: Abdominal pain, Abdominal distention, Constipation, Nausea, Vomiting - Genitourinary Genitourinary: reports: Dysuria, Frequency, Urgency. denies: Flank pain - Musculoskeletal Musculoskeletal: denies: Muscle pain, Back pain, Muscle aches - Integumentary Integumentary: denies: Rash, Pruritis - Neurological Neurological: denies: General weakness, Focal weakness, Headache - Psychiatric Psychiatric: denies: Depression, Anxiety - Endocrine Endocrine: denies: Polyuria, Polydypsia - Hematologic/Lymphatic Hematologic/Lymphatic: denies: Anemia, Bruising, Petechiae Prior Level of Functionality: Patient is independent of activities of daily living. He reports walking 5 miles daily. Exam - Vital Signs Vital Signs: Vital Signs x48h Temp Pulse Resp BP Pulse Ox 01/17/20 19:24 110 H 24 202/117 H 99 01/17/20 19:17 111 H 25 H 192/106 H 97 01/17/20 19:03 38.2 C H 109 H 27 H 182/102 H 98 01/17/20 18:55 119 H 26 H 182/102 H 99 01/17/20 18:35 115 H 24 223/124 H 100 01/17/20 18:05 118 H 29 H 183/118 H 99 01/17/20 17:23 37.8 C H 131 H 18 145/77 H 97 - Physical Exam General Appearance: positive: No acute distress, Alert Eyes Bilateral: positive: PERRL, EOMI ENT: positive: No signs of dehydration Neck: positive: No JVD, Trachea midline Respiratory: positive: Chest non-tender, No respiratory distress, Breath sounds nml, Other (Mild crackles heard in the left lung base). negative: Wheezes, Rales, Rhonchi Cardiovascular: positive: Irregularly irregular, Tachycardia Abdomen: positive: Non-tender, Nml bowel sounds, No distention Skin: positive: Color nml, Warm, Dry Extremities: positive: Non-tender, Full ROM, Nml appearance, Pedal edema Neurologic/Psychiatric: positive: Oriented x3, Mood/affect nml Sepsis Event Note (H) - Evaluation Current Stage of Sepsis: Sepsis - Sepsis Criteria Sepsis Criteria: Recorded Heart Rate greater than 90 bpm, Recorded Respiratory Rate greater than 20, WBC count greater than 12,000 or less than 4000 Conclusion/Plan - Problem List (1) Sepsis Conclusion/Plan: 2/2 UTI Patient Started on Rocephin 1 g IV daily. We will continue. Blood and urine cultures pending. Tylenol for fever as needed. IV fluids discontinued due to mild crackles heard in the left lower lung base. Qualifiers: Sepsis type: sepsis due to unspecified organism Sepsis acute organ dysfunction status: without acute organ dysfunction Qualified Code(s): A41.9 - Sepsis, unspecified organism (2) UTI (urinary tract infection) Conclusion/Plan: Patient on Rocephin IV 1 g daily. Tylenol PRN for fever. Qualifiers: Urinary tract infection type: acute cystitis Hematuria presence: without hematuria Qualified Code(s): N30.00 - Acute cystitis without hematuria (3) Atrial fibrillation with RVR Conclusion/Plan: On metoprolol and Pradaxa. Patient was given a dose of labetalol IV in the ED. If necessary we will give a dose of diltiazem. (4) Hypertension Conclusion/Plan: On losartan and metoprolol. We will continue. (5) Hyperlipidemia Conclusion/Plan: On atorvastatin 40 mg p.o. daily. We will continue (6) GERD (gastroesophageal reflux disease) Conclusion/Plan: Protonix ordered (7) BPH (benign prostatic hyperplasia) Conclusion/Plan: On tamsulosin (8) Pre-diabetes Conclusion/Plan: On metformin 500mg po daily - Lab Results Fish Bones: 01/17/20 17:40 01/17/20 17:40 Core Measures - Anticipated LOS I expect patient to be DC'd or transferred within 96 hours.: Yes - DVT/VTE - Prophylaxis VTE/DVT Device ordered at admit?: Yes VTE/DVT Prophylaxis med ordered at admit?: Yes
[2020-01-17] MEDS ORDERED: SODIUM CHLORIDE 0.9% 1,000 ML IV SCH (20:00)
[2020-01-17] MEDS: ACETAMINOPHEN 325 MG TABLET PO PRN (20:19)
[2020-01-17] MEDS ORDERED: ATORVASTATIN 40 MG TABLET PO SCH (21:09)
[2020-01-17] MEDS: DABIGATRAN 75 MG CAPSULE PO SCH (22:16)
[2020-01-17] MEDS: METOPROLOL TARTRATE 25 MG TABLET PO SCH (22:16)
[2020-01-17] MEDS: traZODone 50 MG TABLET PO SCH (22:16)
[2020-01-18] MEDS: SODIUM CHLORIDE FLUSH 0.9% 10 ML SYRINGE IVP SCH ×3 (00:10→17:17)
[2020-01-18] MEDS: ACETAMINOPHEN 325 MG TABLET PO PRN ×2 (00:10→20:19)
[2020-01-18 05:40] LABS: BASOPHILS % (AUTO) 0.3 %; EOSINOPHILS % (AUTO) 0.1 %; HGB - HEMOGLOBIN 13.2 g/dL (14.0-18.0); LYMPHOCYTES # (AUTO) 1.1 10^3/uL (1.5-3.5); LYMPHOCYTES % (AUTO) 11.1 %; MEAN CORPUSCULAR HEMOGLOBIN 32.8 pg (27.0-31.0); MEAN CORPUSCULAR HGB CONC 35.1 g/dL (32.0-36.0); MEAN CORPUSCULAR VOLUME 93.3 fL (80.0-94.0); MEAN PLATELET VOLUME 10.7 fL (7.4-11.4); MONOCYTES # (AUTO) 0.9 10^3/uL (0.0-1.0); MONOCYTES % (AUTO) 9.3 %; NEUTROPHILS # (AUTO) 7.7 10^3/uL (1.5-6.6); NEUTROPHILS % (AUTO) 78.2 %; PLT - PLATELET COUNT 129 10^3/uL (130-450); RED BLOOD COUNT 4.03 10^6/uL (4.70-6.10); RED CELL DISTRIBUTION WIDTH 12.1 % (12.0-15.0); WHITE BLOOD COUNT 9.9 x10^3/uL (4.8-10.8)
[2020-01-18 05:44] LABS: CALCIUM 9.1 mg/dL (8.5-10.3); CREATININE 1.1 mg/dL (0.6-1.2)
[2020-01-18 05:52] LABS: HB2 TOTAL 13.1 g/dL; HEMOGLOBIN A1C 0.59 g/dL; HEMOGLOBIN A1C % 6.3 % (4.6-6.2)
[2020-01-18] MEDS: PANTOPRAZOLE 40 MG TABLET PO SCH (06:10)
[2020-01-18] MEDS: cefTRIAXone 1 GM in SODIUM CHLORIDE 0.9% MINIBAG 100 ML IV SCH (08:48)
[2020-01-18] MEDS: METOPROLOL TARTRATE 25 MG TABLET PO SCH ×2 (08:49→20:19)
[2020-01-18] MEDS: DABIGATRAN 75 MG CAPSULE PO SCH ×2 (08:49→20:19)
--- NOTE | 2020-01-18 08:57 | PHARMACY PROGRESS NOTE ---
- Best Possible Medication History Admit Date and Time: 01/17/201921 Processed by: Pharmacy Medication History completed: Yes Patient Interview: Completed Secondary Source(s): Other family member (PATIENT INTERVIEWED BY SYSTEMS SPEC. PATIENT CONFIRMED HOME MEDICATIONS, SPOUSE ALSO ABLE TO CONFIRM), Pharmacy records, Insurance records As the person ultimately responsible for medication therapy, providers are able to order a medication from an existing home medication list in [facility] via the "Reconcile Routine" prior to Confirmation of that medication by technology support analyst. Such practice is discouraged except when the physician, in their clinical judgment, deems that a medical need exists for a medication without regard to previous use.
--- NOTE | 2020-01-18 09:03 | PROVIDER PROGRESS NOTE ---
Subjective - Prog Note Date Prog Note Date: 01/18/20 Prog Note Time: 09:01 (Patient seen ~ 8am) - Subjective Pt reports feeling: Improved ("Can I go home now? I feel much better, I'd sleep better at home,there's all kinds of things going on here at night with blood drawing and people walking in" No dysuria overnight, Cant recall antibiotics he's been on in the past for prostatitis. Is on flomax. Tolerating PO today) Current Medications - Current Medications Current Medications: Active Medications Generic Name Dose Route Start Last Admin Trade Name Freq PRN Reason Stop Dose Admin Acetaminophen 650 mg 01/17/20 19:22 01/18/20 00:10 Tylenol PO 650 mg Q4HR PRN Administration Pain 1 to 4 Dabigatran 150 mg 01/17/20 22:00 01/18/20 08:49 Pradaxa PO 150 mg BID LILY Administration Ceftriaxone Sodium 1 gm/ 100 mls @ 200 mls/hr 01/18/20 09:00 01/18/20 08:48 Sodium Chloride IV 200 mls/hr DAILY LILY Administration Potassium Chloride/Sodium Chloride 1,000 mls @ 83.333 mls/hr 01/18/20 09:00 Normal Saline 0.9% W/20 Meq Kcl IV .Q12H LILY Metoprolol Tartrate 25 mg 01/17/20 22:00 01/18/20 08:49 Lopressor PO 25 mg BID LILY Administration Ondansetron HCl 4 mg 01/17/20 19:22 Zofran Inj IVP Q6HR PRN Nausea / Vomiting Oxycodone HCl 5 mg 01/17/20 19:22 Roxicodone PO Q4HR PRN Pain 5 to 7 Pantoprazole Sodium 40 mg 01/18/20 07:00 01/18/20 06:10 Protonix PO 40 mg QDAC LILY Administration Potassium Chloride 20 meq 01/18/20 09:00 K-Dur PO 01/18/20 21:01 BID LILY Sodium Chloride 10 ml 01/17/20 19:22 Normal Saline Flush 0.9% IVP PRN PRN NEEDED PER PROVIDER ORDERS Sodium Chloride 10 ml 01/18/20 01:00 01/18/20 00:10 Normal Saline Flush 0.9% IVP 10 ml 0100,0900,1700 LILY Administration Trazodone HCl 50 mg 01/17/20 21:07 01/17/20 22:16 Desyrel PO 50 mg QPM LILY Administration Aspirin 81 mg PO QPM 09/16/19 Bumetanide 1 mg PO DAILY 09/16/19 Dabigatran Etexilate Mesylate [Pradaxa] 150 mg PO BID 09/16/19 Losartan [Cozaar] 50 mg PO DAILY 09/16/19 Metoprolol Tartrate 25 mg PO BID 09/16/19 Omeprazole 20 mg PO DAILY 09/16/19 Potassium Chloride 10 meq PO DAILY 09/16/19 Tamsulosin [Flomax] 0.4 mg PO DAILY 09/16/19 metFORMIN [Glucophage] 500 mg PO DAILY 09/16/19 Atorvastatin [Lipitor] 40 mg PO DAILY 01/18/20 Objective - Vital Signs/Intake & Output Reviewed Vital Signs: Yes Vital Signs: Vital Signs x48h Temp Pulse Resp BP BP BP Pulse Ox 01/18/20 08:49 120/69 01/18/20 07:35 37.3 C 105 H 18 111/72 97 01/18/20 05:00 37.3 C 115 H 16 119/80 97 Intake & Output: Intake & Output 01/15/20 01/16/20 01/17/20 01/18/20 23:59 23:59 23:59 23:59 Intake Total 1557.953 0 Output Total 160 500 Balance 1397.953 -500 - Objective General Appearance: positive: No acute distress, Other (awake , alert, nontoxic, some breakfast eaten. Appropriate in conversation, moves easily for exam) Eyes Bilateral: positive: Normal inspection, EOMI Respiratory: positive: Chest non-tender, No respiratory distress, Breath sounds nml Cardiovascular: positive: Regular rate & rhythm, No murmur Abdomen: positive: Non-tender, Nml bowel sounds, No distention. negative: Tenderness (no suprapubic tenderness) Back: negative: CVA tenderness (R), CVA tenderness (L) Skin: positive: Warm, Dry Extremities: negative: Pedal edema Neurologic/Psychiatric: positive: Oriented x3, Motor nml, Mood/affect nml - Lab Results Fish Bones: 01/18/20 05:00 01/18/20 05:00 Other Labs: Lab Results x24hrs 01/18/20 01/18/20 01/18/20 Range/Units 05:00 05:00 05:00 WBC 9.9 (4.8-10.8) x10^3/uL RBC 4.03 L (4.70-6.10) 10^6/uL Hgb 13.2 L (14.0-18.0) g/dL Hct 37.6 L (42.0-52.0) % MCV 93.3 (80.0-94.0) fL MCH 32.8 H (27.0-31.0) pg MCHC 35.1 (32.0-36.0) g/dL RDW 12.1 (12.0-15.0) % Plt Count 129 L (130-450) 10^3/uL MPV 10.7 (7.4-11.4) fL Neut # (Auto) 7.7 H (1.5-6.6) 10^3/uL Lymph # (Auto) 1.1 L (1.5-3.5) 10^3/uL Robertson # (Auto) 0.9 (0.0-1.0) 10^3/uL Eos # (Auto) 0.0 (0.0-0.7) 10^3/uL Baso # (Auto) 0.0 (0.0-0.1) 10^3/uL Absolute Nucleated RBC 0.00 x10^3/uL Nucleated RBC % 0.0 /100WBC Sodium 136 (135-145) mmol/L Potassium 3.2 L (3.5-5.0) mmol/L Chloride 99 L (101-111) mmol/L Carbon Dioxide 22 (21-32) mmol/L Anion Gap 15.0 H (6-13) BUN 14 (6-20) mg/dL Creatinine 1.1 (0.6-1.2) mg/dL Estimated GFR (MDRD) 66 L (>89) Glucose 143 H (70-100) mg/dL Glycated Hemoglobin 6.3 H (4.6-6.2) % Estim Average Glucose 134 H (70-100) Lactic Acid (0.5-2.2) mmol/L Calcium 9.1 (8.5-10.3) mg/dL Total Bilirubin (0.2-1.0) mg/dL AST (10-42) IU/L ALT (10-60) IU/L Alkaline Phosphatase (42-121) IU/L Total Protein (6.7-8.2) g/dL Albumin (3.2-5.5) g/dL Globulin (2.1-4.2) g/dL Albumin/Globulin Ratio (1.0-2.2) Lipase (22-51) U/L Urine Color Urine Clarity (CLEAR) Urine pH (5.0-7.5) PH Ur Specific Clementon (1.002-1.030) Urine Protein (NEGATIVE) mg/dL Urine Glucose (UA) (NEGATIVE) mg/dL Urine Ketones (NEGATIVE) mg/dL Urine Occult Blood (NEGATIVE) Urine Nitrite (NEGATIVE) Urine Bilirubin (NEGATIVE) Urine Urobilinogen (NORMAL) E.U./dL Ur Leukocyte Esterase (NEGATIVE) Urine RBC (0-5) /HPF Urine WBC (0-3) /HPF Urine WBC Clumps Ur Squamous Epith Cells (<= Few) Urine Bacteria (None Seen) /HPF Ur Microscopic Review Urine Culture Comments 01/17/20 01/17/20 01/17/20 Range/Units 17:40 17:40 17:40 WBC (4.8-10.8) x10^3/uL RBC (4.70-6.10) 10^6/uL Hgb (14.0-18.0) g/dL Hct (42.0-52.0) % MCV (80.0-94.0) fL MCH (27.0-31.0) pg MCHC (32.0-36.0) g/dL RDW (12.0-15.0) % Plt Count (130-450) 10^3/uL MPV (7.4-11.4) fL Neut # (Auto) (1.5-6.6) 10^3/uL Lymph # (Auto) (1.5-3.5) 10^3/uL Robertson # (Auto) (0.0-1.0) 10^3/uL Eos # (Auto) (0.0-0.7) 10^3/uL Baso # (Auto) (0.0-0.1) 10^3/uL Absolute Nucleated RBC x10^3/uL Nucleated RBC % /100WBC Sodium 134 L (135-145) mmol/L Potassium 3.5 (3.5-5.0) mmol/L Chloride 99 L (101-111) mmol/L Carbon Dioxide 27 (21-32) mmol/L Anion Gap 8.0 (6-13) BUN 17 (6-20) mg/dL Creatinine 1.1 (0.6-1.2) mg/dL Estimated GFR (MDRD) 66 L (>89) Glucose 139 H (70-100) mg/dL Glycated Hemoglobin (4.6-6.2) % Estim Average Glucose (70-100) Lactic Acid 1.0 (0.5-2.2) mmol/L Calcium 9.6 (8.5-10.3) mg/dL Total Bilirubin 2.2 H (0.2-1.0) mg/dL AST 21 (10-42) IU/L ALT 26 (10-60) IU/L Alkaline Phosphatase 85 (42-121) IU/L Total Protein 8.2 (6.7-8.2) g/dL Albumin 4.7 (3.2-5.5) g/dL Globulin 3.5 (2.1-4.2) g/dL Albumin/Globulin Ratio 1.3 (1.0-2.2) Lipase 29 (22-51) U/L Urine Color YELLOW Urine Clarity CLOUDY (CLEAR) Urine pH 6.5 (5.0-7.5) PH Ur Specific Clementon 1.010 (1.002-1.030) Urine Protein TRACE (NEGATIVE) mg/dL Urine Glucose (UA) NEGATIVE (NEGATIVE) mg/dL Urine Ketones NEGATIVE (NEGATIVE) mg/dL Urine Occult Blood LARGE H (NEGATIVE) Urine Nitrite POSITIVE H (NEGATIVE) Urine Bilirubin NEGATIVE (NEGATIVE) Urine Urobilinogen 0.2 (NORMAL) (NORMAL) E.U./dL Ur Leukocyte Esterase LARGE H (NEGATIVE) Urine RBC Y (0-5) /HPF Urine WBC >25 H (0-3) /HPF Urine WBC Clumps PRESENT Ur Squamous Epith Cells NONE SEEN (<= Few) Urine Bacteria Many H (None Seen) /HPF Ur Microscopic Review INDICATED Urine Culture Comments INDICATED 01/17/20 Range/Units 17:40 WBC 13.7 H (4.8-10.8) x10^3/uL RBC 4.34 L (4.70-6.10) 10^6/uL Hgb 14.4 (14.0-18.0) g/dL Hct 40.6 L (42.0-52.0) % MCV 93.5 (80.0-94.0) fL MCH 33.2 H (27.0-31.0) pg MCHC 35.5 (32.0-36.0) g/dL RDW 12.2 (12.0-15.0) % Plt Count 147 (130-450) 10^3/uL MPV 10.0 (7.4-11.4) fL Neut # (Auto) 11.3 H (1.5-6.6) 10^3/uL Lymph # (Auto) 1.4 L (1.5-3.5) 10^3/uL Robertson # (Auto) 0.9 (0.0-1.0) 10^3/uL Eos # (Auto) 0.0 (0.0-0.7) 10^3/uL Baso # (Auto) 0.0 (0.0-0.1) 10^3/uL Absolute Nucleated RBC 0.00 x10^3/uL Nucleated RBC % 0.0 /100WBC Sodium (135-145) mmol/L Potassium (3.5-5.0) mmol/L Chloride (101-111) mmol/L Carbon Dioxide (21-32) mmol/L Anion Gap (6-13) BUN (6-20) mg/dL Creatinine (0.6-1.2) mg/dL Estimated GFR (MDRD) (>89) Glucose (70-100) mg/dL Glycated Hemoglobin (4.6-6.2) % Estim Average Glucose (70-100) Lactic Acid (0.5-2.2) mmol/L Calcium (8.5-10.3) mg/dL Total Bilirubin (0.2-1.0) mg/dL AST (10-42) IU/L ALT (10-60) IU/L Alkaline Phosphatase (42-121) IU/L Total Protein (6.7-8.2) g/dL Albumin (3.2-5.5) g/dL Globulin (2.1-4.2) g/dL Albumin/Globulin Ratio (1.0-2.2) Lipase (22-51) U/L Urine Color Urine Clarity (CLEAR) Urine pH (5.0-7.5) PH Ur Specific Clementon (1.002-1.030) Urine Protein (NEGATIVE) mg/dL Urine Glucose (UA) (NEGATIVE) mg/dL Urine Ketones (NEGATIVE) mg/dL Urine Occult Blood (NEGATIVE) Urine Nitrite (NEGATIVE) Urine Bilirubin (NEGATIVE) Urine Urobilinogen (NORMAL) E.U./dL Ur Leukocyte Esterase (NEGATIVE) Urine RBC (0-5) /HPF Urine WBC (0-3) /HPF Urine WBC Clumps Ur Squamous Epith Cells (<= Few) Urine Bacteria (None Seen) /HPF Ur Microscopic Review Urine Culture Comments Sepsis Event Note (H) - Evaluation Current Stage of Sepsis: Resolved (Tmax over night 39.4 at 12am, Afeb this morning, HR still right ~ 100, BP stable, WB imporoved 13.7>>9K, no tachypnea) - Sepsis Criteria Sepsis Criteria: Recorded Heart Rate greater than 90 bpm, Recorded Respiratory Rate greater than 20, WBC count greater than 12,000 or less than 4000 Assessment/Plan - Problem List (1) Sepsis Impression: related to UTI with bacteremia Resolved, Afebrile this morning (T max ~ 12 am at 39.4, has defervesced), BP stable, tolerates metoprolol dosing, no tachypnea, Leukocytosis improving (12K>>9K) no bandemia. Since HR still slightly elevated , although subjectively feels much better, will give 1 additional liter NS. Pt denies low EF/CHF Qualifiers: Sepsis type: sepsis due to unspecified organism Sepsis acute organ dysfunction status: without acute organ dysfunction Qualified Code(s): A41.9 - Sepsis, unspecified organism (2) UTI (urinary tract infection) Impression: with Gram negative bacteremia Clinically responding to ceftriaxone, follow up sensitivies/speciation; radha will know result tomorrow If remains clilnically improved , likely DC on PO antibiotics tomorrow. Qualifiers: Urinary tract infection type: acute cystitis Hematuria presence: without hematuria Qualified Code(s): N30.00 - Acute cystitis without hematuria (3) Atrial fibrillation Impression: No longer in RVR continue metoprolol continue Pradaxa [id number] 4 (4) Hypokalemia Impression: replete PO add 20 meq to IVF recheck in am (5) Hypertension Impression: stable on home meds, not hypertensive (6) BPH (benign prostatic hyperplasia) Impression: continue home flomax
[2020-01-18] MEDS: NS W/20 MEQ KCL 1,000 ML IV SCH ×2 (09:09→20:42)
[2020-01-18] MEDS: POTASSIUM CHLORIDE 20 MEQ TABLET PO SCH ×2 (09:09→20:23)
[2020-01-18] MEDS: traZODone 50 MG TABLET PO SCH (21:51)
[2020-01-19] MEDS: SODIUM CHLORIDE FLUSH 0.9% 10 ML SYRINGE IVP SCH ×2 (00:44→10:21)
[2020-01-19 05:33] LABS: BASOPHILS % (AUTO) 0.3 %; EOSINOPHILS # (AUTO) 0.2 10^3/uL (0.0-0.7); EOSINOPHILS % (AUTO) 2.4 %; LYMPHOCYTES # (AUTO) 1.1 10^3/uL (1.5-3.5); LYMPHOCYTES % (AUTO) 12.7 %; MEAN CORPUSCULAR HEMOGLOBIN 32.7 pg (27.0-31.0); MEAN CORPUSCULAR HGB CONC 34.6 g/dL (32.0-36.0); MEAN CORPUSCULAR VOLUME 94.6 fL (80.0-94.0); MEAN PLATELET VOLUME 11.1 fL (7.4-11.4); NEUTROPHILS # (AUTO) 6.4 10^3/uL (1.5-6.6); PLT - PLATELET COUNT 143 10^3/uL (130-450); RED BLOOD COUNT 3.67 10^6/uL (4.70-6.10); RED CELL DISTRIBUTION WIDTH 12.2 % (12.0-15.0); WHITE BLOOD COUNT 8.9 x10^3/uL (4.8-10.8)
[2020-01-19 05:41] LABS: CREATININE 0.8 mg/dL (0.6-1.2)
[2020-01-19] MEDS: PANTOPRAZOLE 40 MG TABLET PO SCH (06:18)
[2020-01-19] MEDS: cefTRIAXone 1 GM in SODIUM CHLORIDE 0.9% MINIBAG 100 ML IV SCH (08:03)
[2020-01-19] MEDS: DABIGATRAN 75 MG CAPSULE PO SCH (08:03)
[2020-01-19] MEDS: METOPROLOL TARTRATE 25 MG TABLET PO SCH (08:09)
[2020-01-19 08:10] VITALS: BP 158/97
[2020-01-19] MEDS: NS W/20 MEQ KCL 1,000 ML IV SCH (08:45)
[2020-01-19] MEDS ORDERED: levETIRAcetam INJ 500 MG in SODIUM CHLORIDE 0.9% 100ML 100 ML IV ONE (09:00)
[2020-01-19] MEDS ORDERED: LOSARTAN 50 MG TABLET PO SCH (09:00)
--- NOTE | 2020-01-19 09:20 | Discharge Plan ---
Discharge Plan Problem Reviewed?: Yes Disposition: Home, Self Care Condition: Stable Prescriptions: cefUROXime axetiL [Ceftin] 500 mg PO Q12H 4 Days #8 tablet Diet: Cardiac Activity Restrictions: frequent rest next fewday Shower Restrictions: No Driving Restrictions: No Weight Bearing: Full Weight Instruction Topics: UTI, Sepsis Dc, Sepsis Health Concerns: You were admitted with fever, and urinary symptoms You were found to have a urinary tract infection, and this also infected the blood stream You had sepsis with fast heart rate, fever, and elevated white blood count. The sepsis resolved quickly with IV volume and antibiotics, and your fever quickly resolved with teratment. Your white blood cell count has returned to normal. The causative bacteria has been identified as well as what antibiotics it is sensitive to Plan of Treatment: 1 ) Urinary Tract Infection E Coli identified as bacteria, very sensitive to antibiotics Complete course of antibiotics , 4 more days of Ceftin twice daily 01/19-01/22 (see below) Continue your Flomax for enlarged prostate 2) Blood stream infection (Ecoli bacteremia) As above complete full 7 day course of antibiotics , you have gotten 3 days of IV antibiotics in the hospital. Complete additional 4 days of oral Ceftin twice daily 01/19- thru 01/22. Complete course even though you already feel much better 3 ) Sepsis Elevated heart rate , fever and white blood count with infection(resolved) No change in your home medications, Hold off on the bumex for a day or 2 til thursday since we needed to give you extra volume for your sepsis when coming in. Ok to resume then Follow up with PCP after completing antibiotic course Care Goals: Complete course of antibiotic treatment No Smoking: If you smoke, Please STOP! Call for help. Follow-up with: Raffi Simms MD [Primary Care Provider] -
--- NOTE | 2020-01-19 12:06 | DISCHARGE SUMMARY ---
"Discharge Summary Admit Date: 01/17/20 Discharge Date: 01/19/20 Discharging Provider: ABDULLAHI Betancur, ACNP Primary Care Provider: Kobe Simms Code Status: Attempt Resuscitation Condition at Discharge: Stable Discharge Disposition: Home, Self Care Discharge Facility Name: [facility] - DIAGNOSES Admission Diagnoses: Sepsis Urinary Tract Infection Atrial Fibrillation with RVR Hypertension Hyperlipidemia GERD BPH Pre diabetes Discharge Diagnoses with Status of Each Condition: Sepsis; resolved Urinary Tract Infection; Ecoli , completing antibiotics Uncomplicated Ecoli bacteremia; resolved, completing antibiotics Atrial Fibrillation with RVR RVR resolved Hypertension controlled on home medications Hyperlipidemia controlled on home medications GERD controlled on home medications BPH continues finasteride, if recurrent UTI in future could consider bid Pre diabetes controlled on home medications - HPI History of Present Illness: Patient is a 74-year-old male with history of CAD status post 11 stents and a quadruple bypass, hyperlipidemia, atrial fibrillation on Pradaxa, prediabetic, GERD and BPH who presented to the ED with complaints of dysuria and increased urinary frequency. He also reports change in the coloration of his urine. The initial stream appears cloudy and clears up as he continues to urinate. His symptoms started 2 days ago. He also reported temperature of 101 Fahrenheit at home. He has been having general body aches for the past couple of days. He called his primary care physician who advised him to come to the emergency room for evaluation. He was found to be tachycardic in the emergency room with a heart rate as high as 120s. He also had a WBC of 13.7 and urinanalysis showed Positive urine nitrites greater than 25 white blood cells and many bacteria. As a result of his clinical appearance he was presented for admission for further treatment. At bedside he is resting comfortably. He denies chest pain, dyspnea, abdominal pain, nausea or vomiting. He has a trace to +1 lower extremity edema bilaterally. - CONSULTS | PROCEDURES Consultations: None Procedures: None - HOSPITAL COURSE Hospital Course: Impression: Ecoli UTI with uncomplicated Ecoli bacteremia Jean-Baptiste sensitive Ecoli Received 3 doses Ceftriaxone 1 gram in hospital Rapid resolution of fever and leukocytosis (T max 39.4 night of admission), quickly defervesced, normal lactate, no tachypnea, Leukocytosis improving (1 2K>>9K) no bandemia. ) Planned discharge on Bactrim, but patient notes was told has sulfa allergy with rash to Furosemide. Will complete additonal 4 days bid Ceftin 500 mg for total 7 days antibiotic as recommended for uncomplicated ecoli bacteremia (2) UTI (urinary tract infection) As above Clinically responding to ceftriaxone, and will complete course with 4 days Ceftin 500mg bid Continues on flomax for BPH (3) Atrial fibrillation Rate controlled (still ~ 100 on discharge; continue metoprolol; consider increase to 50 mg bid on follow up if suboptimal rate control continue Pradaxa [id number] 4 (4) Hypokalemia on admission, repleted PO,IV Advised to hold bumex til Saturday 01/20 since was given volume for bacteremia (Takes bumex for ankle edema (denies CHF) (5) Hypertension Impression: stable on home meds, not hypertensive - ALLERGIES Allergies/Adverse Reactions: Allergies Allergy/AdvReac Type Severity Reaction Status Date / Time Sulfa (Sulfonamide Allergy Rash Verified 01/19/20 10:46 Antibiotics) - MEDICATIONS Home Medications: Ambulatory Orders Medication Instructions Recorded Confirmed Aspirin 81 mg PO QPM 09/16/19 01/18/20 Bumetanide 1 mg PO DAILY 09/16/19 01/18/20 Dabigatran Etexilate Mesylate 150 mg PO BID 09/16/19 01/18/20 [Pradaxa] Losartan [Cozaar] 50 mg PO DAILY 09/16/19 01/18/20 Metoprolol Tartrate 25 mg PO BID 09/16/19 01/18/20 Omeprazole 20 mg PO DAILY 09/16/19 01/18/20 Potassium Chloride 10 meq PO DAILY 09/16/19 01/18/20 Tamsulosin [Flomax] 0.4 mg PO DAILY 09/16/19 01/18/20 metFORMIN [Glucophage] 500 mg PO DAILY 09/16/19 01/18/20 Atorvastatin [Lipitor] 40 mg PO DAILY 01/18/20 01/18/20 Acetaminophen [Tylenol] 650 mg PO Q4HR PRN tablet 01/19/20 Dabigatran [Pradaxa] 150 mg PO BID capsule 01/19/20 cefUROXime axetiL [Ceftin] 500 mg PO Q12H 4 Days #8 tablet 01/19/20 - PHYSICAL EXAM AT DISCHARGE General Appearance: positive: No acute distress, Alert Respiratory: positive: Chest non-tender, No respiratory distress, Breath sounds nml Cardiovascular: positive: No murmur, Irregularly irregular. negative: JVD present Abdomen: positive: Nml bowel sounds, No distention, Other (no suprapubic tenderness). negative: Tenderness Skin: positive: Warm, Dry Extremities: negative: Pedal edema Neurologic/Psychiatric: positive: Oriented x3, Mood/affect nml - LABS Result Diagrams: 01/19/20 04:50 01/19/20 04:50 Other Lab Results: Urine culture and Blood cultures 1 set Pansensitive Eoli - SEPSIS Current Stage of Sepsis: Resolved (Tmax over night 39.4 at 12am, Afeb this morning, HR still right ~ 100, BP stable, WB imporoved 13.7>>9K, no tachypnea) Possible source of Sepsis: Genitourinary Sepsis Criteria: Recorded Temperature greater than 38.3C or Less than 36C (resolved), Recorded Heart Rate greater than 90 bpm, Recorded Respiratory Rate greater than 20, WBC count greater than 12,000 or less than 4000 - FOLLOW UP Follow Up: Patient to follow up with PCP at completion of antibiotics - TIME SPENT Time Spent in Discharge (Minutes): 40"
== END 2020-01-19 12:02 | disposition home or self-care (01) | DRG 872 ==
LOC: ED 17:20 → MS2 19:22 → UNDOADMIN 19:22
PROVIDERS: ADMIT Internal Medicine; ATTEND Nurse Practitioner
DX: A41.51 Sepsis due to Escherichia coli [E. coli] (principal); N30.00 Acute cystitis without hematuria; I48.91 Unspecified atrial fibrillation; I10 Essential (primary) hypertension; E78.5 Hyperlipidemia, unspecified; K21.9 Gastro-esophageal reflux disease without esophagitis; N40.0 Benign prostatic hyperplasia without lower urinary tract symptoms; E87.6 Hypokalemia; R73.03 Prediabetes; I25.10 Atherosclerotic heart disease of native coronary artery without angina pectoris; Z95.1 Presence of aortocoronary bypass graft; Z95.5 Presence of coronary angioplasty implant and graft; Z79.01 Long term (current) use of anticoagulants; Z79.899 Other long term (current) drug therapy; Z82.49 Family history of ischemic heart disease and other diseases of the circulatory system
CPT/HCPCS: 36415; 80048; 80053; 81001; 83036; 83605; 83690; 85025; 87040; 87077; 87086; 87181; 96365; 96375; 99284; 99285; A9270; J7120; 81003

== ENCOUNTER 2020-01-25 11:04 | Outpatient (CLI) | payer OTHER ==
--- NOTE | 2020-01-25 11:51 | SLEEP CARE CONSULTATION ---
Information from patient questionnaire entered by Ute Guevara. I have reviewed and concur with the information entered by Ute Guevara. This document represents the service I personally performed and the decisions made by , Haydee Porras ARNP. History of Present Illness Service Date and Time: 01/25/2020 1104 Initial Kimball Sleepiness Scale score: 8 (in 2019) Current Kimball Sleepiness Scale score: 12 Additional HPI information: SEVERO SHINE returns with spouse for follow up and results of the recently performed polysomnography. He was found to have severe obstructive sleep apnea with an AHI of 67.8 and kathleen oxygen saturation of 79%. Patient states he did use a CPAP machine 20 years ago but could not tolerate the large mask. He is here because his encouraged him to be re-evaluated for treatment. He has a long cardiac history with atrial flutter and cardiac disease with heart stents placed earlier this year. I explained the pathophysiology behind obstructive sleep apnea. We then spent quite a bit of time discussing different treatment options. For mild obstructive sleep apnea, surgery and oral appliance are alternatives to nasal CPAP therapy but in moderate or severe cases, nasal CPAP is the most effective and reliable treatment. When apnea is primarily in supine position, then positional management therapy could be effective. Methods discussed such as positioning with pillows, using a T-shirt with tennis balls in the back, and shown commercial products that have a pillow format on back to prevent supine sleep. I reviewed the impact of weight changes on sleep apnea and recommended weight management. After some discussion, the patient opted to go with the nasal CPAP therapy. Nasal autoCPAP set at 4-15 cmH20 will be ordered with rationale explained. A manual titration study will be ordered if unable to find optimal pressure with office adjustments. I explained how CPAP machine works with sample devices [employer] Dreamstation and ResTIME PLUS Q [id number] and what to expect when using the machine. Using CPAP every night in order to get used to it was emphasized. Patient advised to put CPAP mask on before getting into bed so as not to fall asleep without CPAP. To assist acclimation to CPAP use, it could also be used for a short time during day while reading or watching TV. The patient was instructed to call the CPAP supplier to discuss any mechanical problem that may occur. If the mask given is uncomfortable or is difficult to keep on through the night even with adjustment, contact the CPAP supplier as many will replace with another mask style if notified before 30 days. If snoring or perceives is not getting enough air or too much air from the machine, notify this office. AAS patient education PAP tips reviewed and given to patient. Patient counseled not drink alcohol less than 4 hours before bedtime as it can increase snoring and apnea. Patient was cautioned about risks of drowsy driving until sleepiness symptoms resolve. Sleep Study - Results Type of Sleep Study: Polysomnography Prior sleep studies: Yes Polysomnography/Home Sleep Study results: IMPRESSION: The quality of the study is good. The patient had reduced sleep efficiency due to two prolonged awakenings after the sleep onset. The sleep architecture was abnormal for sleep fragmentation and reduced amount of time spent in slow wave sleep (N3). Respiratory monitoring showed very severe obstructive sleep apneahypopnea (AHI = 67.8) associated with frequent arousals, oxyhemoglobin desaturation and moderate hypoxia (kathleen oxygen saturation of 79%). Baseline oxygen saturation was normal. The respiratory events occurred independently of sleep stage and body position (supine AHI = 74.4; non-supine = 62.48). Snore was moderate to loud in intensity. There was no significant periodic leg movement of sleep. Cardiac rhythm was atrial flutter with occasional premature ventricular contractions. No abnormal behavior (parasomnia) observed during the night. Allergies and Home Medications Drug allergies reviewed: Yes (sulfa) Home medication list reviewed: Yes (stopped amlodipine and doubled the losartan) Review of Systems Review of systems same as previous: Yes (no changes) Physical Exam Heart Rate: 86 O2 Saturation: 96 Height: 5 ft 8 in Weight: 214 lb 6.4 oz Body Mass Index: 32.5 BMI Classification: Obese Impression and Plan 1. Obstructive Sleep Apnea-Hypopnea Syndrome, very severe, with lowest oxygen saturation of 79%. Obviously this is the cause of the patients symptoms of unrefreshed sleep, and excessive daytime sleepiness. Positive pressure therapy could benefit his cardiac health with his history of atrial flutter and heart stents. As mentioned above, the patient will be started on nasal autoCPAP therapy with pressure set at 4-15 cmH2O. A manual titration study will be completed if unable to find optimal treatment pressure with office adjustments. Compliance guidelines also reviewed. A copy of compliance guidelines will be given for reference at check out. Because the apnea is more severe supine, I instructed to avoid sleeping supine using pillow positioning until able to start CPAP use. 2. Atrial Flutter. Patient aware and is under care of cardiology for this condition. He is to continue followups there as needed. * Nasal auto CPAP therapy, pressure at 4-15 cm H2O. * Follow up with cardiology as needed/previously scheduled. * Attempt to lose weight. * Avoid alcohol consumption near bedtime. * Avoid supine sleep until using CPAP. * The patient is again cautioned about driving until sleepiness completely resolves. * Return one month after CPAP obtained. I will assess response to therapy and compliance at that time. Visit Type: In Office Time Spent with Patient (minutes): 24 Provider Statement: I spent 100% of the Face to Face Visit with the patient with greater than 50% spent counseling the patient and coordination of care.
== END 2020-01-25 11:05 | disposition home or self-care (01) ==
LOC: SC 11:04
PROVIDERS: ATTEND Nurse Practitioner Family
DX: G47.33 Obstructive sleep apnea (adult) (pediatric) (principal); I48.92 Unspecified atrial flutter; E66.9 Obesity, unspecified; Z68.32 Body mass index [BMI] 32.0-32.9, adult
CPT/HCPCS: 99212; 99213

== ENCOUNTER 2020-03-30 15:20 | Outpatient (CLI) | payer OTHER ==
--- NOTE | 2020-03-30 13:51 | SLEEP CARE CONSULTATION ---
Information from patient questionnaire entered by Melba Thompson. I have reviewed and concur with the information entered by Melba Thompson. This document represents the service I personally performed and the decisions made by me, Haydee Porras ARNP. History of Present Illness Service Date and Time: 03/30/2020 1320 Previous diagnosis: Very Severe, Obstructive Sleep Apnea-Hypopnea Syndrome AHI: 67.8 Reason for follow up: first compliance Equipment type: CPAP Equipment obtained from: [employer] (getting supplies as needed) Mask style: Nasal Backup mask available: Yes (keep mask when replaced) Last cushion change: 1 month Prior sleep studies: Yes Year and Where: 12/2019 [facility], 12/2007 [facility], [place] Type of Sleep Study: Polysomnography HPI additional information: SEVERO SHINE was diagnosed to have very severe, AHI 67.8, obstructive sleep apnea-hypopnea syndrome and returns via Telehealth video today with spouse for CPAP therapy first compliance follow-up. Sleep Study - Results Prior sleep studies: Yes CPAP Compliance Data - Data Reviewed with Patient Average duration of nightly device use: 3 hours 25 minutes Compliance rate %: 14.6 Current pressure setting (cmH2O): 4-6 Humidity settin Heated hose settin Average residual AHI: 14.1 Central apnea: 0.6 Obstructive apnea: 4.5 Average large leak: 1 minute 28 seconds Subjective Patient concerns: denies: aerophagia, mask discomfort, air blowing in eyes, mask leak noise, condensation in mask/hose, nasal congestion, dry mouth, nose, throat, epistaxis, other Observed to snore while using device: No Current pressure setting perceived as: comfortable On therapy, patient: reports: sleeping better, awakening more refreshed, being more awake and alert during the day, more rested overall. denies: drowsiness while driving Initial [place] Sleepiness Scale score: 8 (in 2019) Current [place] Sleepiness Scale score: 13 Allergies and Home Medications Drug allergies reviewed: Yes (Sulfa) Home medication list reviewed: Yes (no changes) Review of Systems Review of systems same as previous: Yes (no changes) Physical Exam Vital signs obtained and entered by: Telehealth visit, no vitals obtained Height: 5 ft 8 in Impression and Plan 1. Obstructive Sleep Apnea-Hypopnea Syndrome, very severe, with poor treatment compliance and poor apnea control. On CPAP therapy, the patient has better sleep quality and is more rested overall. Patient has been having difficulty getting used to wearing the CPAP mask and is using the over the nose nasal mask. He would like to try a nasal mask under the nose and I encouraged him to reach out to his DME to change the mask style on his next supply shipment. He has been trying more over the last 2 weeks and feels like he is getting more used to using the mask, but still has issues with putting mask back on when he awakens at 2-3 AM for the bathroom. I advised him to continue to try to remember to put mask back on after the bathroom and lengthen time in mask overall. His AHI is elevated at 14.1, we discussed increasing his pressure to 5-7 cm H2O and then follow up in 1-2 months, he voiced agreement with plan. Patient's apnea severity and rationale for treatment to reduce apnea, improve sleep quality and reduce cardiovascular and cerebrovascular events was reviewed. I also reviewed the benefit of consistent device use of CPAP for cardiac disease and arrhythmia (Atrial Flutter). * Change auto CPAP pressure to 5-7 cmH2O * Notify me if snoring with mask or feeling that the pressure is too much or too little * Attempt to lose weight * Call this office if any problems using CPAP * Return for follow up in 1-2 months, or sooner if concerns arise Counseling Topics: Spare mask Visit Type: Telehealth Video Video Type: [facility] Patient Location: Home Other Participants: Spouse/Significant Other Location of Provider: Home Patient agrees and consents to this telehealth visit type: Yes Patient agrees to have their insurance billed: Yes Provider Statement: I spent 100% of the Telehealth Video Call with the patient with greater than 50% spent counseling the patient and coordination of care.
== END 2020-03-30 15:21 | disposition home or self-care (01) ==
LOC: SC 15:20
PROVIDERS: ATTEND Nurse Practitioner Family
DX: G47.33 Obstructive sleep apnea (adult) (pediatric) (principal)

== ENCOUNTER 2020-05-14 13:53 | Outpatient (CLI) | payer OTHER ==
--- NOTE | 2020-05-14 16:55 | XRAY Report ---
PROCEDURE: Cervical Spine 2 View INDICATIONS: CHRONIC NECK PAIN TECHNIQUE: 4 view(s) of the cervical spine were acquired. COMPARISON: None. FINDINGS: Bones: No fractures or dislocations to the C6 level. The lateral masses of C1 appear intact on the odontoid view. No suspicious bony lesions. Mild endplate osteophyte formation at C4-C5, C5-C6, and C6-C7, indicating degenerative disc disease. Soft tissues: No prevertebral soft tissue swelling. IMPRESSION: 1. Degenerative disc disease. 2. No acute fracture. No osseous lesion. If symptoms and/or clinical suspicion for pathology continue , further assessment with repeat plain films, or advanced imaging (e.g., CT, MRI, or bone scan) is re commended for further assessment. Reviewed by: Aydee Raines MD on 05/14/2020 4:53 PM PST Approved by: Aydee Raines MD on 05/14/2020 4:53 PM PST Station ID: [id number]
== END 2020-05-14 13:54 | disposition home or self-care (01) ==
LOC: DI.S 13:53
PROVIDERS: ATTEND Family Medicine
DX: M50.30 Other cervical disc degeneration, unspecified cervical region (principal)

== ENCOUNTER 2020-05-16 13:05 | Outpatient (CLI) | payer OTHER ==
--- NOTE | 2020-05-16 11:48 | SLEEP CARE CONSULTATION ---
Information from patient questionnaire entered by Ute Guevara. I have reviewed and concur with the information entered by Ute Guevara. This document represents the service I personally performed and the decisions made by me, Elizabeth Fuentes, RN, MSN, GROUN[employer]. History of Present Illness Service Date and Time: 05/16/2020 1100 Previous diagnosis: Very Severe, Obstructive Sleep Apnea-Hypopnea Syndrome AHI: 67.8 (in 2019) Reason for follow up: other (6 week - last chance for compliance) Accompanied by: Spouse Equipment type: CPAP Equipment obtained from: [employer] (no supplies since set up) Mask style: Nasal Backup mask available: No Last cushion change: no replacements Prior sleep studies: Yes Year and Where: 12/2019 [facility], 12/2007 [facility] Type of Sleep Study: Polysomnography CPAP Compliance Data - Data Reviewed with Patient Average duration of nightly device use: 3 hr 6 min Compliance rate %: 23.3 Current pressure setting (cmH2O): 4-6 Humidity settin Heated hose settin Average residual AHI: 14.1 Central apnea: 0.4 Obstructive apnea: 5.5 Hypopnea: 8.2 Average large leak: 5 min 15 sec Subjective Missed days of use due to: reports: other (missed days of use while hospitalized ) Patient concerns: reports: mask leak noise, condensation in mask/hose ( waking intermittently to moisture - unsure if condensation or sweating), other (waking with mask off of face intermittently 1-2 times a week.). denies: aerophagia, mask discomfort, air blowing in eyes, nasal congestion, dry mouth, nose, throat, epistaxis Observed to snore while using device: Yes (minimal ) Current pressure setting perceived as: comfortable On therapy, patient: reports: sleeping better (able to sleep longer recently and a little more rested. ). denies: drowsiness while driving Initial [place] Sleepiness Scale score: 8 (in 2019) Current [place] Sleepiness Scale score: 10 Allergies and Home Medications Known drug allergies: Yes Home medication list reviewed: Yes (reduced Metoprolol) Review of Systems Review of systems same as previous: No (Broke left little finger - ) Physical Exam Height: 5 ft 8 in Weight: 210 lb Body Mass Index: 31.9 BMI Classification: Obese Impression and Plan 1. Obstructive Sleep Apnea-Hypopnea Syndrome, very severe, with poor treatment compliance and elevated residual apnea control. On CPAP therapy, the patient has just started to notice better sleep quality and associated improved restfulness with longer use of CPAP. Compliance affected by waking with mask off face as well as taking mask off for comfort. It appears he is still getting acclimated to the mask. Thus to improve use of CPAP during the night, he was advised to use the mask with CPAP during the day for short periods to assist mask acclimation. In addition, the patients pressure will be changed to autoCPAP 4-8 cmH20 For elevation of residual AHI. Patient advised to contact me if pressure change is uncomfortable so that it can be adjusted. Goals for apnea control discussed. I reviewed how he failed meeting insurance compliance and what the minimum requirement is for nightly use. He states he did not realize and will try harder. Thus I will order a HST for re-evaluation so that he can re-qualify for CPAP and restart CPAP compliance period of 90 days. Due to severity of apnea, he is advised to use CPAP nightly with all sleep for maximum benefit of treatment. Sometimes the DME will need to take back the CPAP and then re-issue. The plan is to have patient use CPAP until he is able to repeat sleep study and qualify for new device so minimal time is without CPAP use. For possible condensation, I showed patient how to adjust the heated hose higher. Patient changed setting as instructed. Rationale discussed why to change his humidity and heated hose. Answered spouse questions about other options of treatment researched. Discussed that CPAP gold standard of treatment for his severity. Patient agreed with above plan of care. Patient's apnea severity and rationale for treatment to reduce apnea, improve sleep quality and reduce cardiovascular and cerebrovascular events was reviewed. I also reviewed the benefit of consistent device use of CPAP for arrhythmia and how weight loss and gain affect apnea severity and PAP pressure requirements.Extra time taken during this video visit due to break in connection and reconnection time and adjusting audio for clarity. * HST * Change auto CPAP pressure to 4-8 cmH2O * mask acclimation * Adjust heated hose * Notify me if snoring with mask or feeling that the pressure is too much or too little * Attempt to lose weight * Call this office if any problems using CPAP * Return for follow after HST, or sooner if concerns arise Counseling Topics: Weight control Visit Type: Telehealth Video Video Type: [facility] Patient Location: Home Location of Provider: Home Patient agrees and consents to this telehealth visit type: Yes Patient agrees to have their insurance billed: Yes Time Spent with Patient (minutes): 37 Provider Statement: I spent 100% of the Telehealth Video Call with the patient with greater than 50% spent counseling the patient and coordination of care.
== END 2020-05-16 13:06 | disposition home or self-care (01) ==
LOC: SC 13:05
PROVIDERS: ATTEND Nurse Practitioner Family
DX: G47.33 Obstructive sleep apnea (adult) (pediatric) (principal); E66.9 Obesity, unspecified; Z68.31 Body mass index [BMI] 31.0-31.9, adult

== ENCOUNTER 2020-05-17 17:06 | Outpatient (CLI) | payer OTHER ==
--- NOTE | 2020-05-17 14:20 | XRAY Report ---
PROCEDURE: Finger(s) LT INDICATIONS: POST-OP CARE TECHNIQUE: AP hand, 2 views of the left fifth finger(s) acquired. COMPARISON: None FINDINGS: Bones: Patient is status post ORIF of fifth proximal phalange fracture. 2 K wires have been placed ac ross the fifth proximal phalange fracture site. There is near-anatomic alignment following ORIF. Soft tissues: No suspicious soft tissue calcifications. IMPRESSION: Near anatomic alignment following ORIF of left fifth proximal phalange fracture. Reviewed by: Jodie Bailey MD, PhD on 05/17/2020 2:19 PM PST Approved by: Jodie Bailey MD, PhD on 05/17/2020 2:19 PM PST Station ID: [id number]
== END 2020-05-17 23:59 | disposition home or self-care (01) ==
LOC: DI.N 17:06
PROVIDERS: ATTEND Physician Assistant
DX: Z48.89 Encounter for other specified surgical aftercare (principal); S62.617D Displaced fracture of proximal phalanx of left little finger, subsequent encounter for fracture with routine healing

== ENCOUNTER 2020-06-11 11:36 | Outpatient (CLI) | payer MEDICARE, OTHER ==
--- NOTE | 2020-06-11 16:50 | XRAY Report ---
PROCEDURE: Finger(s) LT INDICATIONS: DISPLACED FX OF PROXIMAL PHALANX OF L 5TH DIGIT TECHNIQUE: AP hand, 3 views of the left finger(s) acquired. COMPARISON: 05/17/2020, 05/10/2020, 05/03/2020. FINDINGS: Grossly unchanged alignment of little finger proximal phalanx fracture, with healing sclerosis and kinsey rdware removal Fracture of the fifth metacarpal head noted, with persistent fracture lucency IMPRESSION: Unchanged alignment of the little finger proximal phalanx. Fifth metacarpal head fracture, which is not well seen on prior radiographs. Recommend clinical corre lation to determine the acuity, and serial radiographic follow-up. Reviewed by: Bal Mcmillan MD on 06/11/2020 4:48 PM PST Approved by: Bal Mcmillan MD on 06/11/2020 4:48 PM PST Station ID: [id number]
== END 2020-06-21 23:59 | disposition home or self-care (01) ==
LOC: DI.N 11:36
PROVIDERS: ATTEND Physician Assistant
DX: S62.617B Displaced fracture of proximal phalanx of left little finger, initial encounter for open fracture (principal); S62.347A Nondisplaced fracture of base of fifth metacarpal bone, left hand, initial encounter for closed fracture

== ENCOUNTER 2020-06-14 09:18 | Outpatient (CLI) | payer OTHER ==
--- OUTSIDE RECORDS SUMMARY | 2020-06-20 01:04 | EXTERNAL MEDICAL SUMMARY RPT | Continuity of Care Document ---
:1945 Demographics Phone Unavailable Preferred Language Turkish Marital Status Unknown Jainism Affiliation Unknown Race Unknown Ethnic Group Unknown Author Organization [place] Address [address] [place] [address] Phone Care Team Providers Name Role Phone Mendez Unavailable Unavailable ANN MARIE Unavailable Unavailable MD Unavailable Unavailable Registrar Unavailable Unavailable Fernando Unavailable Unavailable Thompson Unavailable Unavailable Problems date description facility 2013-03-24 10:24 HYPERLIPIDEMIA NEC/NOS [facility] 2013-03-24 10:24 HYPERTENSION NOS [facility] 2013-03-24 10:24 CORON ATHEROSCLER NOS TYPE [facility] VESSEL, [place]RAFT 2013-08-02 12:53 IRON DEFIC [facility]EMIA NOS [facility] 2013-08-02 12:53 HYPERTENSION NOS [facility] 2013-08-02 12:53 CORON ATHEROSCLER NOS TYPE [facility] VESSEL, [place]RAFT 2013-08-02 12:53 SCREEN MAL NEOP-PROSTATE [facility] 2013-08-02 12:59 HYPERLIPIDEMIA NEC/NOS [facility] 2013-08-02 12:59 CORON ATHEROSCLER NOS TYPE [facility] VESSEL, [place] 2013-08-02 12:59 OTH MED,LT,CURRENT USE [facility] 2015-01-22 09:11 HYPERLIPIDEMIA NEC/NOS [facility] 2015-08-17 12:44 HYPERLIPIDEMIA, UNSPECIFIED [facility] 2016-02-05 08:28 TESTICULAR HYPOFUNCTION [facility] 2018-01-14 10:16 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 2019-06-06 14:45 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 2019-06-06 14:45 ENCNTR FOR SURGICAL AFTCR [facility] FOLLOWING SURGERY ON THE CIRC SYS 2019-06-06 14:45 PRESENCE OF AORTOCORONARY [facility] BYPASS GRAFT 2019-07-04 14:45 ATHSCL HEART DISEASE OF [place] [facility] CORONARY ARTERY 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 2019-07-04 14:45 ENCNTR FOR SURGICAL AFTCR [facility] FOLLOWING SURGERY ON THE CIRC SYS 2019-07-04 14:45 PRESENCE OF AORTOCORONARY [facility] BYPASS GRAFT 2019-09-16 09:19 ESSENTIAL (PRIMARY) [facility] HYPERTENSION 2019-09-16 09:19 UNSPECIFIED ATRIAL FIBRILLATION [facility] 2019-09-16 09:19 OTHER VIRAL [facility]ONIA [facility] 2019-09-16 09:19 PAIN IN RIGHT HIP [facility] 2019-09-16 09:19 CONTUSION OF SCALP, INITIAL [facility] ENCOUNTER 2019-09-16 09:19 UNSP INTRACRANIAL INJURY W LOC [facility] OF 30 MINUTES OR LESS, INIT 2019-09-16 09:19 FRACTURE OF ONE RIB, LEFT SIDE, [facility] INIT FOR CLOS FX 2019-09-16 09:19 CONTUSION OF RIGHT UPPER ARM, [facility] INITIAL ENCOUNTER 2019-09-16 09:19 COVID19 [facility] 2019-09-16 09:19 FALL ON SAME LEVEL, [facility] UNSPECIFIED, INITIAL ENCOUNTER 2019-09-16 09:19 BEDROOM OF SINGLE-FAMILY [facility] (PRIVATE) HOUSE PLACE 2019-09-16 09:19 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 OF [facility] ANTICOAGULANTS 2019-12-06 09:29 OBESITY, UNSPECIFIED [facility] 2019-12-06 09:29 OBSTRUCTIVE SLEEP APNEA (ADULT) [facility] (PEDIATRIC) 2019-12-06 09:29 ESSENTIAL (PRIMARY) [facility] HYPERTENSION 2019-12-06 09:29 CARDIAC ARRHYTHMIA, UNSPECIFIED [facility] 2019-12-06 09:29 BODY MASS INDEX (BMI) [facility] 33.0-33.9, ADULT 2019-12-22 20:25 OBSTRUCTIVE SLEEP APNEA (ADULT) [facility] (PEDIATRIC) 2019-12-22 20:25 UNSPECIFIED ATRIAL FLUTTER [facility] 2019-12-27 00:00 OTHER PERSISTENT ATRIAL [facility] FIBRILLATION 2020-01-17 19:22 SEPSIS DUE TO ESCHERICHIA COLI [facility] [E. COLI] 2020-01-17 19:22 HYPOKALEMIA [facility] 2020-01-17 19:22 ATHSCL HEART DISEASE OF [place] [facility] CORONARY ARTERY 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 2020-01-17 19:22 UNSPECIFIED ATRIAL FIBRILLATION [facility] 2020-01-17 19:22 ACUTE CYSTITIS WITHOUT [facility] HEMATURIA 2020-01-17 19:22 PREDIABETES [facility] 2020-01-17 19:22 RESIDENTIAL (CURRENT) USE OF [facility] ANTICOAGULANTS 2020-01-17 19:22 OTHER RESIDENTIAL (CURRENT) DRUG [facility] THERAPY 2020-01-17 19:22 PRESENCE OF AORTOCORONARY [facility] BYPASS GRAFT 2020-01-17 19:22 HYPERLIPIDEMIA, UNSPECIFIED [facility] 2020-01-17 19:22 ESSENTIAL (PRIMARY) [facility] HYPERTENSION 2020-01-17 19:22 GASTRO-ESOPHAGEAL REFLUX [facility] DISEASE WITHOUT ESOPHAGITIS 2020-01-17 19:22 BENIGN PROSTATIC HYPERPLASIA [facility] WITHOUT LOWER URINRY TRACT SYMP 2020-01-17 19:22 FAMILY HX OF ISCHEM HEART DIS [facility] AND OTH DIS OF THE CIRC SYS 2020-01-17 19:22 PRESENCE OF CORONARY [facility] ANGIOPLASTY IMPLANT AND GRAFT 2020-01-25 11:04 OBESITY, UNSPECIFIED [facility] 2020-01-25 11:04 OBSTRUCTIVE SLEEP APNEA (ADULT) [facility] (PEDIATRIC) 2020-01-25 11:04 UNSPECIFIED ATRIAL FLUTTER [facility] 2020-01-25 11:04 BODY MASS INDEX ([facility]) [facility] 32.0-32.9, ADULT 2020-05-16 00:00:00 Encounter for other specified All surgical aftercare 2020-05-16 00:00:00 FINGER3 VIEW [facility] [place] 2020-05-16 00:00:00 Follow-up examination following idb [facility] surgery, unspecified 2020-05-16 00:00:00 Postoperative care [facility] 2020-05-17 00:00:00 Occupational Therapy [facility] [place] 2020-05-18 00:00:00 Open fracture of middle or [facility] proximal phalanx or phalanges of [place] hand 2020-05-18 00:00:00 Displaced fracture of proximal [facility] phalanx of left little finger, [place] initial encounter for open fracture 2020-05-22 00:00:00 Alcohol intake [facility] 2020-05-22 00:00:00 Health-related behavior [facility] 2020-05-22 00:00:00 Tobacco use and exposure [facility] 2020-05-22 00:00:00 Never smoker [facility] 2020-05-22 00:00:00 Alcohol use [facility] 2020-05-22 00:00:00 Tobacco smoking status NHIS [facility] [place] 2020-06-06 00:00:00 FINGER3 VIEW [facility] 2020-06-11 00:00:00 Alcohol intake [facility] [place] 2020-06-11 00:00:00 Health-related behavior [facility] [place] 2020-06-11 00:00:00 Tobacco use and exposure [facility] [place] 2020-06-11 00:00:00 Exercise [facility] [place] 2020-06-11 00:00:00 Never smoker [facility] [place] 2020-06-11 00:00:00 Alcohol use [facility] [place] 2020-06-11 00:00:00 Tobacco smoking status [facility] [place] Allergies date description facility SULFA (SULFONAMIDE ANTIBIOTICS) [facility] Sulfa (Sulfonamide Antibiotics) [facility] AMOXICILLIN [facility] CEFACLOR [facility] SULFASALAZINE [facility] TOPIRAMATE [facility] [place] HYDROCODONE-ACETAMINOPHEN [facility] NO KNOWN ENVIRONMENTAL ALLERGIES [facility] PENICILLINS [facility] No Known Allergies [facility] NO KNOWN ALLERGIES [facility] NO ALLERGY INFORMATION AVAILABLE [facility] PENICILLINS [facility] NO KNOWN ALLERGIES [facility] [place] TETRACYCLINE [facility] MELOXICAM [facility] Sulfa (Sulfonamide Antibiotics) [facility] Sulfa (Sulfonamide Antibiotics) [facility] Sulfa (Sulfonamide Antibiotics) [facility] Procedures date description facility 2020-05-16 00:00:00 FINGER3 VIEW [facility] [place] date description facility 2020-05-16 00:00:00 [facility] [place] date description facility 2020-05-16 00:00:00 FINGER3 VIEW [facility] [place] date description facility 2020-05-16 00:00:00 [facility] [place] date description facility 2020-05-16 00:00:00 FINGER3 VIEW [facility] date description facility 2020-05-16 00:00:00 [facility] date description facility 2020-05-22 00:00:00 Pin Removal, [facility] [place] date description facility 2020-05-22 00:00:00 [facility] [place] date description facility 2020-05-22 00:00:00 Pin Removal, FX Care [facility] [place] date description facility 2020-05-22 00:00:00 [facility] [place] date description facility 2020-06-06 00:00:00 FINGER3 VIEW [facility] [place] date description facility 2020-06-06 00:00:00 [facility] [place] Social History date description facility 2020-05-22 00:00:00 Never smoker [facility] [place] date description facility 2020-06-11 00:00:00 Never smoker [facility] [place] Social History date description facility 2020-05-22 00:00:00 Never smoker [facility] [place] date description facility 2020-06-11 00:00:00 Never smoker [facility] [place] date description facility [phone]
== END 2020-06-14 09:19 | disposition home or self-care (01) ==
LOC: SC 09:18
PROVIDERS: ATTEND Nurse Practitioner Family
DX: G47.33 Obstructive sleep apnea (adult) (pediatric) (principal); R09.02 Hypoxemia; E66.9 Obesity, unspecified; Z68.33 Body mass index [BMI] 33.0-33.9, adult
CPT/HCPCS: 95806

== ENCOUNTER 2020-07-06 11:08 | Outpatient (CLI) | payer OTHER ==
--- NOTE | 2020-07-06 11:45 | SLEEP CARE CONSULTATION ---
Information from patient questionnaire entered by Ute Guevara. I have reviewed and concur with the information entered by Ute Guevara. This document represents the service I personally performed and the decisions made by , Haydee Porras ARNP. History of Present Illness Service Date and Time: 07/06/2020 1108 Accompanied by: Spouse Initial [place] Sleepiness Scale score: 8 (in 2019) Current [place] Sleepiness Scale score: 7 Additional HPI information: SEVERO SHINE returns for follow up with spouse to review results of the recently performed home sleep study. He was diagnosed to have severe, AHI 41.2, obstructive sleep apnea-hypopnea syndrome. He is on CPAP therapy and may continue with the reassessment of his diagnosis and severity. He is using a [employer] Wisp mask. His compliance report shows 4 hours 2 minutes on days used and 46.7% compliance. He has a residual AHI of 11.8 and average large leak of 29 seconds. He is using average pressure 8.0 cmH2O and mean pressure 7.0 cmH2O. He still has some times that he is taking the mask off while asleep but his is reminding him if she notices it off during the night. Sleep Study - Results Type of Sleep Study: Home sleep study Prior sleep studies: Yes Year and Where: 12/2019 - [facility], 12/2007 - [facility] Polysomnography/Home Sleep Study results: Physician Impression: The quality of the study is good. The length of the study is adequate (> 240 minutes). Please also see the tabulated and graphic data. 1. Obstructive Sleep Apnea-Hypopnea (ICD-10 G47.33), severe, with an AHI of 41.2 /hr and kathleen SaO2 of 71%. During the study, the patient had 143 apneas (142 obstructive, 1 central, 0 mixed) and 70 hypopneas. The longest episode lasted 61.5 seconds. The respiratory events occurred independently of sleep stage and body position (supine AHI was 26.2 and non-supine, 61.32). 2. Hypoxemia (ICD-10 R09.02), moderate, with the lowest oxygen saturation of 71 % and 41.3 minutes with SaO2 under 90%. Baseline oxygen saturation was normal (Average oxygen saturation was 92%). Allergies and Home Medications Drug allergies reviewed: Yes (sulfa) Home medication list reviewed: Yes (no changes) Review of Systems Review of systems same as previous: Yes (no changes) Physical Exam Heart Rate: 82 O2 Saturation: 97 Height: 5 ft 8 in Weight: 224 lb Body Mass Index: 34.0 BMI Classification: Obese Impression and Plan 1. Obstructive Sleep Apnea-Hypopnea Syndrome, severe, with lowest oxygen saturation of 71%. Continuation of positive pressure therapy could benefit his heart arrhythmia. He has increased his compliance and has an elevated residual AHI of 11.8. The patients pressure will be changed to autoCPAP 6-9 cmH20 for elevation of residual AHI. Patient advised to contact me if pressure change is uncomfortable so that it can be adjusted. Goals for apnea control discussed. Compliance guidelines also reviewed. He and his voiced understanding. * Change auto CPAP pressure to 6-9 cmH2O * Notify me if snoring with mask or feeling that the pressure is too much or too little * Attempt to lose weight * Call this office if any problems using CPAP * Return for follow up in 1-2 months, or sooner if concerns arise Counseling Topics: Weight loss health impact Visit Type: In Office Other Participants: Spouse/Significant Other Time Spent with Patient (minutes): 20 Provider Statement: I spent 100% of the Face to Face Visit with the patient with greater than 50% spent counseling the patient and coordination of care.
== END 2020-07-06 11:09 | disposition home or self-care (01) ==
LOC: SC 11:08
PROVIDERS: ATTEND Nurse Practitioner Family
DX: G47.33 Obstructive sleep apnea (adult) (pediatric) (principal); I49.9 Cardiac arrhythmia, unspecified; E66.9 Obesity, unspecified; Z68.34 Body mass index [BMI] 34.0-34.9, adult
CPT/HCPCS: 99212; 99213

== ENCOUNTER 2020-08-24 10:51 | Outpatient (CLI) | payer OTHER ==
--- NOTE | 2020-08-24 11:33 | SLEEP CARE CONSULTATION ---
Information from patient questionnaire entered by Mando Joseph. I have reviewed and concur with the information entered by Mando Joseph. This document represents the service I personally performed and the decisions made by me, Haydee Porras ARNP. History of Present Illness Service Date and Time: 08/24/2020 1051 Previous diagnosis: Severe, Obstructive Sleep Apnea-Hypopnea Syndrome AHI: 41.2 (in 2019) Reason for follow up: other (2-month followup - pressure change) Equipment type: CPAP Equipment obtained from: [employer] (no supplies since set up; need to call) Mask style: Nasal (Wisp) Backup mask available: No (will keep mask when replaced) Prior sleep studies: Yes Year and Where: 12/2019 - [facility], 12/2007 - [facility] Type of Sleep Study: Home sleep study HPI additional information: SEVERO SHINE was diagnosed to have severe, AHI 41.2, obstructive sleep apnea- hypopnea syndrome and returned today with spouse for CPAP therapy two month pressure change follow-up. Sleep Study - Results Type of Sleep Study: Home sleep study Prior sleep studies: Yes Year and Where: 12/2019 - [facility], 12/2007 - [facility] CPAP Compliance Data - Data Reviewed with Patient Average duration of nightly device use: 3 h 18 min Compliance rate %: 30 Current pressure setting (cmH2O): 6-9 Humidity settin Heated hose settin Average residual AHI: 8.4 Average large leak: 52 sec Subjective Missed days of use due to: reports: mask issues (taking mask off while asleep), other (forgetting to put mask on after bathroom) Patient concerns: reports: mask discomfort (feels a little restricted but it is okay). denies: aerophagia, air blowing in eyes, mask leak noise, condensation in mask/hose, nasal congestion, dry mouth, nose, throat, epistaxis, other Observed to snore while using device: No Current pressure setting perceived as: comfortable On therapy, patient: denies: sleeping better, awakening more refreshed, being more awake and alert during the day, more rested overall, drowsiness while driving Initial [place] Sleepiness Scale score: 8 (in 2019) Current [place] Sleepiness Scale score: 8 Allergies and Home Medications Home medication list reviewed: Yes (no changes) Review of Systems Review of systems same as previous: Yes (no changes) Physical Exam Heart Rate: 93 O2 Saturation: 98 Height: 5 ft 8 in Weight: 223 lb Body Mass Index: 33.9 BMI Classification: Obese Impression and Plan 1. Obstructive Sleep Apnea-Hypopnea Syndrome, severe, with poor treatment compliance and fair apnea control with an elevated residual AHI. On CPAP therapy, the patient does not feel any difference of better sleep or more energy during the day. His states he appears to rest more comfortably with the CPAP mask on. His [place] is 8/10 which is same as initial [place] score. His compliance is still low at 30% which is lower than at his last visit. He just takes it off while asleep or forgets to put back on after getting up to bathroom. He has been trying to remember to put the mask on more by keeping mask on and unhooking hose to go to restroom. This has helped him. He feels he is getting more used to the mask. Compliance guidelines reviewed for insurance coverage. Patient was counseled on the difference between meeting compliance and optimal use of CPAP. Optimal use of CPAP is use of CPAP with all sleep to obtain maximum benefit of treatment. Patient is encouraged to use CPAP with all sleep. The patients pressure will be changed to autoCPAP 8-11 cmH20 for elevation of residual AHI. Patient advised to contact me if pressure change is uncomfortable so that it can be adjusted. Goals for apnea control discussed. Patient's apnea severity and rationale for treatment to reduce apnea, improve sleep quality and reduce cardiovascular and cerebrovascular events was reviewed. I also reviewed the benefit of consistent device use of CPAP for arrhythmia. * Change auto CPAP pressure to 8-11 cmH2O * Notify me if snoring with mask or feeling that the pressure is too much or too little * Attempt to lose weight * Call this office if any problems using CPAP * Return for follow up in 1-2 months, or sooner if concerns arise Counseling Topics: Spare mask, Weight loss health impact Visit Type: In Office Other Participants: Spouse/Significant Other Time Spent with Patient (minutes): 22 Provider Statement: I spent 100% of the Face to Face Visit with the patient with greater than 50% spent counseling the patient and coordination of care.
== END 2020-08-24 10:52 | disposition home or self-care (01) ==
LOC: SC 10:51
PROVIDERS: ATTEND Nurse Practitioner Family
DX: G47.33 Obstructive sleep apnea (adult) (pediatric) (principal); E66.9 Obesity, unspecified; Z68.33 Body mass index [BMI] 33.0-33.9, adult
CPT/HCPCS: 99212; 99213

== ENCOUNTER 2020-10-26 10:47 | Outpatient (CLI) | payer OTHER ==
--- NOTE | 2020-10-26 11:12 | SLEEP CARE CONSULTATION ---
Information from patient questionnaire entered by Ute Guevara. I have reviewed and concur with the information entered by Ute Guevara. This document represents the service I personally performed and the decisions made by , Haydee Porras ARNP. History of Present Illness Service Date and Time: 10/26/2020 1047 Previous diagnosis: Very Severe, Obstructive Sleep Apnea-Hypopnea Syndrome AHI: 67.8 (in 2019 (41.2 2020)) Reason for follow up: other (2 month with pressure change) Equipment type: CPAP Equipment obtained from: [employer] (getting supplies as needed) Mask style: Nasal Backup mask available: Yes (old mask) Last cushion change: 2 weeks Prior sleep studies: Yes Year and Where: 12/2019 - [facility], 12/2007 - [facility] Type of Sleep Study: Home sleep study HPI additional information: SEVERO SHINE was diagnosed to have very severe, AHI 67.8, obstructive sleep apnea-hypopnea syndrome and returned today for CPAP therapy 2 month pressure change follow-up. CPAP Compliance Data - Data Reviewed with Patient Average duration of nightly device use: 3 hr 12 min Compliance rate %: 21.7 (60 days) Current pressure setting (cmH2O): 8-11 (median 9.1, avg 10.8, max 11.0) Humidity settin Heated hose settin Average residual AHI: 5.6 Average large leak: 38 sec Subjective Missed days of use due to: reports: mask issues (he has some claustrophobia and he will take it off during the night) Patient concerns: denies: aerophagia, mask discomfort, air blowing in eyes, mask leak noise, condensation in mask/hose, nasal congestion, dry mouth, nose, throat, epistaxis, other Observed to snore while using device: No Current pressure setting perceived as: comfortable On therapy, patient: reports: more rested overall, other (doesn't notice big difference). denies: drowsiness while driving Initial [place] Sleepiness Scale score: 8 (in 2019) Current [place] Sleepiness Scale score: 11 Allergies and Home Medications Home medication list reviewed: Yes (no changes) Review of Systems Review of systems same as previous: Yes (no changes) Physical Exam Heart Rate: 62 O2 Saturation: 98 Height: 5 ft 8 in Weight: 227 lb Body Mass Index: 34.4 BMI Classification: Obese Impression and Plan 1. Obstructive Sleep Apnea-Hypopnea Syndrome, severe, with poor treatment compliance and fair apnea control with minimally elevated residual AHI. On CPAP therapy, the patient has not felt a difference from using the machine but he is not using the machine for all sleep. His tells him that he sleeps more soundly and doesn't snore when he wears the mask. He still has issue of taking the mask off while asleep and also when waking up and feeling some claustrophobia from the mask and pressure. He will take it off when he gets up to bathroom and forgets to put back on. To prevent falling asleep without CPAP after using the bathroom, patient can either unhook the hose and keep mask on or put mask on pillow. He will continue to try to increase his compliance. He has significant improvement of his sleep apnea and is satisfied with his treatment. He feels the current pressure is comfortable and would like to keep setting of [id number]. Patient's apnea severity and rationale for treatment to reduce apnea, improve sleep quality and reduce cardiovascular and cerebrovascular events was reviewed. I also reviewed the benefit of consistent device use of CPAP for arrhythmia. * Continue auto CPAP pressure at 8-11 cmH2O * Notify me if snoring with mask or feeling that the pressure is too much or too little * Attempt to lose weight * Call this office if any problems using CPAP * Return for follow up in 3 month, or sooner if concerns arise Counseling Topics: Spare mask, Weight loss health impact Visit Type: In Office Time Spent with Patient (minutes): 16 Provider Statement: I spent 100% of the Face to Face Visit with the patient with greater than 50% spent counseling the patient and coordination of care.
== END 2020-10-26 10:48 | disposition home or self-care (01) ==
LOC: SC 10:47
PROVIDERS: ATTEND Nurse Practitioner Family
DX: G47.33 Obstructive sleep apnea (adult) (pediatric) (principal); E66.9 Obesity, unspecified; Z68.34 Body mass index [BMI] 34.0-34.9, adult
CPT/HCPCS: 99212

== ENCOUNTER 2021-01-31 09:02 | Outpatient (CLI) | payer OTHER ==
--- NOTE | 2021-01-31 09:19 | SLEEP CARE CONSULTATION ---
Information from patient questionnaire entered by Ute Guevara. I have reviewed and concur with the information entered by Ute Guevara. This document represents the service I personally performed and the decisions made by me, Haydee Porras ARNP. History of Present Illness Service Date and Time: 01/31/2021 0902 Previous diagnosis: Very Severe, Obstructive Sleep Apnea-Hypopnea Syndrome AHI: 67.8 (in 2019) Reason for follow up: three month Equipment type: CPAP Equipment obtained from: [employer] (getting supplies as needed) Mask style: Nasal Mask brand: [employer] (Wisp) Backup mask available: Yes (old mask) Last cushion change: 2 weeks Prior sleep studies: Yes Year and Where: 2019 - [facility]; 12/2007 - [facility] Type of Sleep Study: Home sleep study HPI additional information: SEVERO SHINE was diagnosed to have very severe, AHI 67.8, obstructive sleep apnea-hypopnea syndrome and returns via Telehealth visit today for CPAP therapy three month follow-up. CPAP Compliance Data - Data Reviewed with Patient Average duration of nightly device use: 1 hr 59 min Compliance rate %: 10 (90 days) Current pressure setting (cmH2O): 8-11 Humidity settin Heated hose settin Average residual AHI: 3.9 Average large leak: 2 min 12 sec Subjective Missed days of use due to: reports: travel, other (forget to put on or take off when asleep) Patient concerns: reports: mask discomfort (doesn't think any mask would be comfortable). denies: aerophagia, air blowing in eyes, mask leak noise, condensation in mask/hose, nasal congestion, dry mouth, nose, throat, epistaxis, other Observed to snore while using device: No Current pressure setting perceived as: comfortable On therapy, patient: reports: other ( states he is quieter sleeping). denies: sleeping better, awakening more refreshed, being more awake and alert during the day, more rested overall, drowsiness while driving Initial [place] Sleepiness Scale score: 8 (in 2019) Current [place] Sleepiness Scale score: 13 Allergies and Home Medications Home medication list reviewed: Yes (no changes) Review of Systems Review of systems same as previous: Yes (no changes) Physical Exam Vital signs obtained and entered by: Telehealth visit to reduce exposure during Covid pandemic Height: 5 ft 8 in Impression and Plan 1. Obstructive Sleep Apnea-Hypopnea Syndrome, very severe, with poor treatment compliance and good apnea control. On CPAP therapy, the patient has better sleep quality and is more rested overall. Patient still has difficulty keeping his mask on because he will take it off when he is asleep. He sometimes forgets to put it on before going to bed but his will remind him when she notices. I encouraged him to continue to try and replace the mask when he finds it off and put it on before going to bed. He voiced understanding. Patient has a DreamStation and he was informed of the current recall. I informed the patient that [employer] has a recall on several devices like the patients machine. Patient was encouraged to register their device online with [employer] for the recall to see if their device is affected. If their device is affected they should start a claim. Patient denies any black particles seen in machine or hoses, any unusual odors coming from device. Patient has not experienced any physical symptoms such as upper airway irritation, headache, skin or eye irritation, asthma, nausea/vomiting, difficulty breathing or chest pain. Patient informed that they may use an inline CPAP filter that they can obtain online to reduce chance of any particles being inhaled or ingested. We discussed thoroughly the health risks of not using the CPAP versus continuing use with the filter in place. If patient is not able to sleep due to waking up choking, gasping for air or other respiratory distress that they may decide to continue using it until it is either replaced or repaired. Patient voiced understanding and agreement with plan. Patient's apnea severity and rationale for treatment to reduce apnea, improve sleep quality and reduce cardiovascular and cerebrovascular events was reviewed. I also reviewed the benefit of consistent device use of CPAP for arrhythmia. * Continue autoCPAP pressure at 8-11 cmH2O * Patient to register his device with [employer] for recall * Notify me if snoring with mask or feeling that the pressure is too much or too little * Attempt to lose weight * Call this office if any problems using CPAP * Return for follow up in 3 months, or sooner if concerns arise Counseling Topics: Spare mask, Weight loss health impact Visit Type: Telehealth Video Video Type: VSee Patient Location: Work Location of Provider: Office Patient agrees and consents to this telehealth visit type: Yes Patient agrees to have their insurance billed: Yes Time Spent with Patient (minutes): 19 Provider Statement: I spent 100% of the Telehealth Video Call with the patient with greater than 50% spent counseling the patient and coordination of care.
== END 2021-01-31 09:03 | disposition home or self-care (01) ==
LOC: SC 09:02
PROVIDERS: ATTEND Nurse Practitioner Family
DX: G47.33 Obstructive sleep apnea (adult) (pediatric) (principal)

== ENCOUNTER 2021-02-26 12:31 | Outpatient (CLI) | payer OTHER | END 2021-02-26 12:32 | disposition home or self-care (01) | LOC: LAB.S 12:31 | PROVIDERS: ATTEND Emergency Medicine | DX: Z01.84 Encounter for antibody response examination (principal); U07.1 COVID-19 | CPT/HCPCS: 86769 ==

== ENCOUNTER 2021-04-22 13:53 | Outpatient (CLI) | payer OTHER | END 2021-04-22 13:54 | disposition short-term general hospital (02) | LOC: EMS 13:53 | DX: R07.9 Chest pain, unspecified (principal) | CPT/HCPCS: A0425; A0427 ==

== ENCOUNTER 2021-05-01 09:31 | Outpatient (CLI) | payer OTHER ==
--- NOTE | 2021-05-01 09:44 | SLEEP CARE CONSULTATION ---
Information from patient questionnaire entered by Jocelynn Marroquin MA. I have reviewed and concur with the information entered by Jocelynn Marroquin MA. This document represents the service I personally performed and the decisions made by , Haydee Porras ARNP. History of Present Illness Service Date and Time: 05/01/2021 0900 Previous diagnosis: Very Severe, Obstructive Sleep Apnea-Hypopnea Syndrome AHI: 67.8 (in 2019) Reason for follow up: three month Equipment type: CPAP Equipment obtained from: [employer] (getting supplies as needed) Mask style: Nasal (over the nose) Backup mask available: No (will keep old mask when replaced) Last cushion change: 1 month Prior sleep studies: Yes Year and Where: 2019 - [facility]; 12/2007 - [facility] Type of Sleep Study: Home sleep study HPI additional information: SEVERO SHINE was diagnosed to have very severe, AHI 67.8, obstructive sleep apnea-hypopnea syndrome and returns via video telehealth visit today with spouse for CPAP therapy three month follow-up. Sleep Study - Results Type of Sleep Study: Home sleep study Prior sleep studies: Yes Year and Where: 2019 - [facility]; 12/2007 - [facility] CPAP Compliance Data - Data Reviewed with Patient Average duration of nightly device use: 2 hours 44 minutes Compliance rate %: 13.3 Current pressure setting (cmH2O): 8-11 Humidity settin Heated hose settin Average residual AHI: 4.6 Average large leak: 2 minutes 34 seconds Subjective Patient concerns: denies: aerophagia, mask discomfort, air blowing in eyes, mask leak noise, condensation in mask/hose, nasal congestion, dry mouth, nose, throat, epistaxis, other Observed to snore while using device: No Current pressure setting perceived as: comfortable On therapy, patient: reports: other (he has not noted difference yet). denies: drowsiness while driving Initial [place] Sleepiness Scale score: 8 (in 2019) Current [place] Sleepiness Scale score: 10 Allergies and Home Medications Home medication list reviewed: Yes (no changes) Review of Systems Review of systems same as previous: Yes (no changes) Physical Exam Vital signs obtained and entered by: Telehealth visit to reduce exposure during covid pandemic Height: 5 ft 8 in Impression and Plan 1. Obstructive Sleep Apnea-Hypopnea Syndrome, very severe, with poor treatment compliance and good apnea control. On CPAP therapy, the patient has better sleep quality and is more rested overall. Patient got a new DreamStation 2 from [employer]. He also got nasal cushion replacements for the mask. He states the mask is more comfortable and he is starting to sleep more. He has not yet gotten over 3 hours a night but he states he is working on it to try to get to the 4-hour plus shakira. He states he does not feel any different with using the CPAP at this point. But the patient has not been using the CPAP adequately and not to receive the best benefit. He voiced understanding. I will follow-up with him in about 3 months to see how is doing. Patient's apnea severity and rationale for treatment to reduce apnea, improve sleep quality and reduce cardiovascular and cerebrovascular events was reviewed. I also reviewed the benefit of consistent device use of CPAP for arrhythmia. Patient was encouraged to lose weight for their overall health and to reduce apneas. Patient states he walks 5 miles a day. * Continue auto CPAP pressure at 8-11 cmH2O * Notify me if snoring with mask or feeling that the pressure is too much or too little * Attempt to lose weight * Call this office if any problems using CPAP * Return for follow up in 3 months, or sooner if concerns arise Counseling Topics: Spare mask, Weight loss health impact Visit Type: Telehealth Video Video Type: Doximity Patient Location: Home Other Participants: Spouse/Significant Other Location of Provider: Office Patient agrees and consents to this telehealth visit type: Yes Patient agrees to have their insurance billed: Yes Time Spent with Patient (minutes): 15 Provider Statement: I spent 100% of the Telehealth Video Call with the patient with greater than 50% spent counseling the patient and coordination of care.
== END 2021-05-01 09:32 | disposition home or self-care (01) ==
LOC: SC 09:31
PROVIDERS: ATTEND Nurse Practitioner Family
DX: G47.33 Obstructive sleep apnea (adult) (pediatric) (principal)

== ENCOUNTER 2021-09-05 15:36 | Outpatient (CLI) | payer OTHER ==
[2021-09-05 16:05] LABS: HCT - HEMATOCRIT 39.5 % (42.0-52.0); HGB - HEMOGLOBIN 13.7 g/dL (14.0-18.0); MEAN CORPUSCULAR HGB CONC 34.7 g/dL (32.0-36.0); MEAN CORPUSCULAR VOLUME 95.2 fL (80.0-94.0); MEAN PLATELET VOLUME 10.5 fL (7.4-11.4); RED BLOOD COUNT 4.15 10^6/uL (4.70-6.10); RED CELL DISTRIBUTION WIDTH 11.7 % (12.0-15.0); WHITE BLOOD COUNT 7.1 x10^3/uL (4.8-10.8)
[2021-09-05 16:09] LABS: INR 1.1 (0.8-1.2); PT - PROTHROMBIN TIME 12.3 secs (9.9-12.6)
[2021-09-05 16:27] LABS: ALBUMIN 4.3 g/dL (3.2-5.5); ALBUMIN/GLOBULIN RATIO 1.3 (1.0-2.2); BILIRUBIN,TOTAL 1.7 mg/dL (0.2-1.0); CALCIUM 9.8 mg/dL (8.5-10.3); CREATININE 1.1 mg/dL (0.6-1.2); POTASSIUM 3.4 mmol/L (3.5-5.0); TOTAL PROTEIN 7.7 g/dL (6.7-8.2)
[2021-09-06 13:36] LABS: HEPATITIS B SURFACE ANTIGEN NON-REACTIVE (NON-REACTIVE); HEPATITIS C ANTIBODY NON-REACTIVE (NON-REACTIVE)
--- NOTE | 2021-09-06 16:20 | Ultrasound Report ---
PROCEDURE: Abdomen Complete INDICATIONS: ELEVATED LIVER ENZYMES TECHNIQUE: Real-time scanning was performed of the abdominal and retroperitoneal organs, with image documentatio n. COMPARISON: None. FINDINGS: Liver: Liver is normal in size and coarsened. Gallbladder: Removed. Gallbladder fossa is unremarkable. Biliary ducts: Intrahepatic bile ducts are non-dilated. Extrahepatic bile duct caliber measures 6.1 mm. Normal is 6-7 mm or less in diameter, or 10 mm or less post-cholecystectomy. Pancreas: Not visualized. Spleen: Spleen is normal in size and homogeneous in echotexture. Kidneys: Kidneys are normal in size and echotexture. Right kidney measures 10.0 cm long; left kidne y measures 10.4 cm long. No hydronephrosis or nephrolithiasis. No solid masses. Aorta: Visualized aorta is normal in caliber at less than 3 cm. Iliacs: Proximal common iliac arteries are normal in caliber at less than 2.5 cm. IVC: Intrahepatic inferior vena cava is patent. IMPRESSION: Cholecystectomy. Gallbladder fossa is unremarkable. Mild coarsened appearance of the liver, overall nonspecific. Reviewed by: Ginny Tucker MD on 09/06/2021 4:19 PM PDT Approved by: Ginny Tucker MD on 09/06/2021 4:19 PM PDT Station ID: [id number]
[2021-09-07 18:51] LABS: ANA SCREEN NEGATIVE (NEGATIVE)
== END 2021-09-05 15:37 | disposition home or self-care (01) ==
LOC: DI 15:36
PROVIDERS: ATTEND Internal Medicine
DX: R74.8 Abnormal levels of other serum enzymes (principal); K22.70 Barrett's esophagus without dysplasia; Z90.49 Acquired absence of other specified parts of digestive tract
CPT/HCPCS: 36415; 80053; 81599; 82784; 83516; 83540; 84466; 85027; 85610; 86038; 86803; 87340; 87522

== ENCOUNTER 2021-09-17 08:00 | Outpatient (CLI) | payer OTHER ==
--- NOTE | 2021-09-17 17:18 | XRAY Report ---
PROCEDURE: Lumbar Spine 2 View INDICATIONS: LUMBAR BACK PAIN TECHNIQUE: 2 views of the lumbar spine were acquired. COMPARISON: None. FINDINGS: Bones: 5 [id number] vertebrae are present. There is normal bony alignment. No vertebral body compression fractures. No suspicious bony lesions. Moderate L4-L5 degenerative disc disease. Mild L1 -L2, L2-L3, L3-L4 and L5-S1 degenerative disease. Moderate L2-L3, L3-L4 and L4-L5 and L5-S1 facet art hropathy. Soft tissues: Overlying bowel gas pattern is normal. No suspicious soft tissue calcifications. IMPRESSION: 1. Multilevel degenerative disc disease. 2. Multilevel facet arthropathy. 3. No fracture. No acute osseous lesion. If there is continued clinical concern for pathology, then M RI should be considered for further evaluation. Reviewed by: Jodie Bailey MD, PhD on 09/17/2021 5:17 PM PDT Approved by: Jodie Bailey MD, PhD on 09/17/2021 5:17 PM PDT Station ID: [id number]
--- NOTE | 2021-09-17 17:19 | XRAY Report ---
PROCEDURE: Thoracic Spine 3 View INDICATIONS: THORACIC BACK PAIN TECHNIQUE: 3 views of the thoracic spine were acquired. COMPARISON: None. FINDINGS: Bones: No fractures or dislocations. No suspicious bony lesions. 12 pairs of ribs are noted, and a ppear intact where visualized. Mild degenerative disc changes noted throughout the thoracic spine. Soft tissues: No paravertebral stripe thickening. IMPRESSION: 1. Multilevel degenerative disc disease. 2. No fracture. No acute osseous lesion. If there is continued clinical concern for pathology, then M RI should be considered for further evaluation. Reviewed by: Jodie Bailey MD, PhD on 09/17/2021 5:18 PM PDT Approved by: Jodie Bailey MD, PhD on 09/17/2021 5:18 PM PDT Station ID: [id number]
== END 2021-09-17 23:59 | disposition home or self-care (01) ==
LOC: DI.S 08:00
PROVIDERS: ATTEND Registered Nurse
DX: M47.816 Spondylosis without myelopathy or radiculopathy, lumbar region (principal); M47.817 Spondylosis without myelopathy or radiculopathy, lumbosacral region; M51.36 Other intervertebral disc degeneration, lumbar region; M51.37 Other intervertebral disc degeneration, lumbosacral region; M51.34 Other intervertebral disc degeneration, thoracic region

== ENCOUNTER 2023-01-08 10:33 | Outpatient (CLI) | payer OTHER ==
--- NOTE | 2023-01-08 11:07 | Sleep Patient Instructions ---
Sleep Center Visit Summary - Patient Visit Information Reason for Visit: Annual followup for PAP therapy - Patient Instructions Additional Instructions: You will continue with CPAP therapy with pressure set at 8-11 cmH2O. A supply prescription will be updated with your DME. We encourage you to continue to try to lose weight. Please follow up with the sleep care office in 1 year. - Clinic Information Contact: [facility] [address] [place] [address] [email or web address] T: [phone]
--- NOTE | 2023-01-08 11:15 | SLEEP CARE CONSULTATION ---
Information from patient questionnaire entered by Bruna Tadeo. I have reviewed and concur with the information entered by Bruna Tadeo. This document represents the service I personally performed and the decisions made by me, Haydee Porras ARNP. History of Present Illness Service Date and Time: 01/08/2023 1033 Previous diagnosis: Very Severe, Obstructive Sleep Apnea-Hypopnea Syndrome AHI: 67.8 (in 2019) Reason for follow up: annual (LAST SEEN 2020) Accompanied by: Spouse (Tanja) Equipment type: CPAP ([place] [facility] 2) Equipment obtained from: [employer] (has not getting supplies) Mask style: Nasal (over the nose) Mask brand: Resmed (N20) Backup mask available: No (will keep old mask when replaced) Last cushion change: 1 year Prior sleep [facility]: Yes [facility] and [facility] Type of Sleep Study: Home sleep study HPI additional information: SEVERO SHINE was diagnosed to have very severe, AHI 67.8, obstructive sleep apnea-hypopnea syndrome and returned today for CPAP therapy annual follow-up. Sleep Study - Results Type of Sleep Study: Home sleep study Prior sleep studies: Yes [facility] - [facility] CPAP Compliance Data - Data Reviewed with Patient Average duration of nightly device use: 3 HRS 10 MIN Compliance rate %: 39 (07/09/22-01/06/23) Current pressure setting (cmH2O): 8-11 Average residual AHI: 5.9 (4.2 in last 30 days) Average large leak: 1 mins 25 secs Subjective Missed days of use due to: reports: other (taking mask off; fall asleep with mask) Patient concerns: reports: mask discomfort. denies: aerophagia, air blowing in eyes, mask leak noise, condensation in mask/hose, nasal congestion, dry mouth, nose, throat, epistaxis Observed to snore while using device: No Current pressure setting perceived as: comfortable On therapy, patient: reports: drowsiness while driving, other ( sees him sleep more peacefully with mask on) Initial [place] Sleepiness Scale score: 8 (in 2019) Current [place] Sleepiness Scale score: 14 (01/08/23) Allergies and Home Medications Known drug allergies: Yes (Sulfa antbx) Drug allergies reviewed: Yes Home medication list reviewed: Yes (stopped pradaxa) Allergy and home medication list: Allergies Sulfa (Sulfonamide Antibiotics) Allergy (Verified 01/08/23 08:34) Rash Review of Systems Review of systems same as previous: No (Aflutter, procedure; off Pradaxa) Physical Exam Vital signs obtained and entered by: BRUNA Cruz MA Blood Pressure: 140/80 (LEFT ARM) Cuff size: regular Heart Rate: 70 O2 Saturation: 97 Height: 5 ft 8 in Weight: 229 lb Body Mass Index: 34.8 BMI Classification: Obese Impression and Plan 1. Obstructive Sleep Apnea-Hypopnea Syndrome, very severe, with poor treatment compliance and good apnea control with minimally elevated residual AHI over last 6 months but well controlled at 4.2 in last month. On CPAP therapy, the patient does not feel he sleep better but his says he sleep more peacefully when he is wearing the CPAP mask. Patient states he will take his mask off during the night because he has claustrophobia issues. He is currently using a ResMed N20 and the headgear is broken. I fit him with a [employer] by [employer], large cushion and he felt this might be more comfortable. He will try it but if he feels it is still too much on his head he will reach out to his DME supplier for other suggestions. The patients pressure will not be changed because his AHI is at goal in last few months. Goals for apnea control discussed. Patient's apnea severity and rationale for treatment to reduce apnea, improve sleep quality and reduce cardiovascular and cerebrovascular events was reviewed. I also reviewed the benefit of consistent device use of CPAP for arrhythmia (repaired and no longer on medication). 2. Obesity, unspecified. Currently patients BMI is 34.8. Obesity increases the risk of apnea, CPAP pressure requirements and overall health risks especially cardiovascular and diabetes. Thus patient is advised to lose weight. * Continue auto CPAP pressure at 8-11 cmH2O * Fit to DreamWisp and example sent home with patient * Update supplies * Notify me if snoring with mask or feeling that the pressure is too much or too little * Attempt to lose weight * Call this office if any problems using CPAP * Return for follow up in 1 year, or sooner if concerns arise Counseling Topics: Spare mask, Weight loss health impact Visit Type: In Office Time Spent with Patient (minutes): 29 Provider Statement: I spent 100% of the Face to Face Visit with the patient with greater than 50% spent counseling the patient and coordination of care.
[2023-01-08 11:23] VITALS: BP 140/80
== END 2023-01-08 10:34 | disposition home or self-care (01) ==
LOC: SC 10:33
PROVIDERS: ATTEND Nurse Practitioner Family
DX: G47.33 Obstructive sleep apnea (adult) (pediatric) (principal); E66.9 Obesity, unspecified; Z68.34 Body mass index [BMI] 34.0-34.9, adult
CPT/HCPCS: 99212; 99213

== ENCOUNTER 2023-06-24 08:00 | Outpatient (CLI) | payer OTHER ==
--- NOTE | 2023-06-24 11:20 | XRAY Report ---
PROCEDURE: Humerus RT INDICATIONS: UNSPECIFIED FALL TECHNIQUE: 2 views of the humerus were acquired. COMPARISON: None. FINDINGS: Bones: No fractures or dislocations. No suspicious bony lesions. Soft tissues: No suspicious soft tissue calcifications or masses. IMPRESSION: No acute bony abnormality. Reviewed by: Evan Peralta MD on 06/24/2023 11:19 AM PST Approved by: Evan Peralta MD on 06/24/2023 11:19 AM PST Station ID: [id number]
--- NOTE | 2023-06-24 16:04 | XRAY Report ---
PROCEDURE: Ribs w/PA Chest 3+V RT INDICATIONS: RIGHT SIDED RIB PAIN TECHNIQUE: 2 views of the ribs were acquired, along with a single view chest. COMPARISON: None. FINDINGS: Surgical changes and devices: Midline sternotomy wires. Bones and chest wall: No fractures or dislocations. No suspicious bony lesions. Overlying soft tis sues appear unremarkable. Lungs and pleura: No pleural effusions or pneumothorax. Left basilar atelectasis. Mediastinum: Mediastinal contours appear normal. Heart size is normal. IMPRESSION: No acute displaced rib fracture or pneumothorax. Left basilar atelectasis. Reviewed by: Melissa Fletcher MD on 06/24/2023 4:03 PM PST Approved by: Melissa Fletcher MD on 06/24/2023 4:03 PM PST Station ID: [id number]
== END 2023-06-24 23:59 | disposition home or self-care (01) ==
LOC: DI.S 08:00
PROVIDERS: ATTEND Registered Nurse
DX: M54.6 Pain in thoracic spine (principal); R07.81 Pleurodynia; R91.8 Other nonspecific abnormal finding of lung field; J98.11 Atelectasis

== ENCOUNTER 2023-07-01 08:00 | Outpatient (CLI) | payer OTHER ==
--- NOTE | 2023-07-01 18:07 | XRAY Report ---
PROCEDURE: Thoracic Spine 2V INDICATIONS: THORACIC BACK PAIN TECHNIQUE: 2 views of the thoracic spine were acquired. COMPARISON: None. FINDINGS: Bones: No fractures or dislocations. No suspicious bony lesions. 12 pairs of ribs are noted, and a ppear intact where visualized. Soft tissues: No paravertebral stripe thickening. IMPRESSION: No acute bony abnormality. No significant degenerative change. Reviewed by: Andi Del Angel MD on 07/01/2023 6:06 PM [facility] Approved by: Andi Del Angel MD on 07/01/2023 6:06 PM [facility] Station ID: [id number]
--- NOTE | 2023-07-01 18:07 | XRAY Report ---
PROCEDURE: Ribs 2V RT INDICATIONS: RIGHT SIDED RIB PAIN TECHNIQUE: 2 views of the right ribs were acquired. COMPARISON: None. FINDINGS: Surgical changes and devices: Sternotomy. Bones and chest wall: Second through fifth right lateral rib fractures. Lungs and pleura: The visualized lung appears clear. No pleural effusions or pneumothorax are visib le. IMPRESSION: Mildly displaced, second through fifth right lateral rib fractures. No pneumothorax. Reviewed by: Andi Del Angel MD on 07/01/2023 6:05 PM PST Approved by: Andi Del Angel MD on 07/01/2023 6:05 PM [facility] Station ID: [id number]
--- NOTE | 2023-07-01 19:57 | XRAY Report ---
PROCEDURE: Hand 3+V RT INDICATIONS: RIGHT HAND PAIN TECHNIQUE: 3 view(s) of the hand(s) acquired. COMPARISON: None FINDINGS: Bones: No fractures or dislocations. No suspicious bony lesions. Old healed fifth metatarsal fractu re with volar angulation. No evidence of acute fracture or foreign body Soft tissues: No suspicious soft tissue calcifications. IMPRESSION: No acute fracture or foreign body. Old healed fifth metacarpal fracture Reviewed by: Collin Wells MD on 07/01/2023 6:56 PM [facility] Approved by: Collin Wells MD on 07/01/2023 6:56 PM [place] Station ID: [id number]
== END 2023-07-01 23:59 | disposition home or self-care (01) ==
LOC: DI.S 08:00
PROVIDERS: ATTEND Registered Nurse
DX: M25.541 Pain in joints of right hand (principal); S62.306D Unspecified fracture of fifth metacarpal bone, right hand, subsequent encounter for fracture with routine healing; M54.6 Pain in thoracic spine; S22.41XA Multiple fractures of ribs, right side, initial encounter for closed fracture

== ENCOUNTER 2023-07-02 09:41 | Outpatient (CLI) | payer OTHER ==
[2023-07-02 14:37] LABS: BASOPHILS % (AUTO) 0.5 %; EOSINOPHILS # (AUTO) 0.2 10^3/uL (0.0-0.7); EOSINOPHILS % (AUTO) 2.5 %; HGB - HEMOGLOBIN 12.4 g/dL (14.0-18.0); LYMPHOCYTES % (AUTO) 32.7 %; MEAN CORPUSCULAR HEMOGLOBIN 32.9 pg (27.0-31.0); MEAN CORPUSCULAR HGB CONC 34.4 g/dL (32.0-36.0); MEAN CORPUSCULAR VOLUME 95.5 fL (80.0-94.0); MEAN PLATELET VOLUME 10.5 fL (7.4-11.4); MONOCYTES # (AUTO) 0.7 10^3/uL (0.0-1.0); MONOCYTES % (AUTO) 10.7 %; NEUTROPHILS # (AUTO) 3.1 10^3/uL (1.5-6.6); NEUTROPHILS % (AUTO) 50.8 %; PLT - PLATELET COUNT 225 10^3/uL (130-450); RED BLOOD COUNT 3.77 10^6/uL (4.70-6.10); RED CELL DISTRIBUTION WIDTH 11.5 % (12.0-15.0); WHITE BLOOD COUNT 6.1 x10^3/uL (4.8-10.8)
[2023-07-02 15:44] LABS: ALBUMIN 4.1 g/dL (3.2-5.5); ALBUMIN/GLOBULIN RATIO 1.5 (1.0-2.2); BILIRUBIN,TOTAL 0.7 mg/dL (0.2-1.0); CALCIUM 9.5 mg/dL (8.5-10.3); CREATININE 0.9 mg/dL (0.6-1.3); POTASSIUM 4.3 mmol/L (3.5-4.5); TOTAL PROTEIN 6.8 g/dL (6.4-8.9)
[2023-07-02 15:45] LABS: THYROID STIMULATING HORMONE 3.17 uIU/mL (0.34-5.60)
== END 2023-07-02 09:42 | disposition home or self-care (01) ==
LOC: LAB.S 09:41
PROVIDERS: ATTEND Registered Nurse
DX: R60.9 Edema, unspecified (principal); I48.92 Unspecified atrial flutter
CPT/HCPCS: 36415; 80053; 83880; 84443; 85025

== ENCOUNTER 2023-07-03 12:24 | Outpatient (CLI) | payer OTHER ==
[2023-07-03 12:48] LABS: ALBUMIN 4.3 g/dL (3.2-5.5); ALBUMIN/GLOBULIN RATIO 1.6 (1.0-2.2); BILIRUBIN,TOTAL 0.9 mg/dL (0.2-1.0); CALCIUM 9.7 mg/dL (8.5-10.3); CREATININE 0.9 mg/dL (0.6-1.3); POTASSIUM 4.3 mmol/L (3.5-4.5)
== END 2023-07-03 12:25 | disposition home or self-care (01) ==
LOC: LAB 12:24
PROVIDERS: ATTEND Registered Nurse
DX: E87.1 Hypo-osmolality and hyponatremia (principal)
CPT/HCPCS: 36415; 80053

== ENCOUNTER 2023-07-03 14:26 | Emergency (ER) | payer OTHER ==
[2023-07-03 15:12] VITALS: O2SAT 97
[2023-07-03] MEDS ORDERED: SODIUM CHLORIDE 0.9% 1,000 ML IV STA (15:36)
--- NOTE | 2023-07-03 15:48 | ED Physician Documentation ---
History of Present Illness - Stated complaint Stated Complaint: ABN LABS/LOW SODIUM - Chief complaint Chief Complaint: General - History obtained from History obtained from: Patient - Additonal information Additional information: Patient is a 77-year-old male with a history of a prior CABG, recent diagnosis of rib fractures presenting for evaluation of hyponatremia. Patient was seen at the walk-in clinic yesterday for labs and noted to have a sodium of 127. He had a recheck of his labs today which did also noted a sodium of 127. Patient was advised this week to increase his usual once a week Bumex to daily because he has recently had some weight gain. He has been taking his Bumex now daily for the last few days.Patient also states that he has been reducing his salt intake over the last week because of his weight gain. Patient otherwise denies any symptoms and states he overall feels great. He states that he does not have much discomfort from his rib pain and that using Tylenol and the muscle relaxer have significantly improved his symptoms. Review of Systems Constitutional: denies: Fever Cardiac: denies: Chest pain / pressure Respiratory: denies: Dyspnea GI: denies: Abdominal Pain Neurologic: denies: Generalized weakness, Headache PD PAST MEDICAL HISTORY - Past Medical History Past Medical History: Yes Cardiovascular: Hypertension, Coronary artery disease, Atrial fibrillation Respiratory: None Neuro: None Endocrine/Autoimmune: Other GI: GERD : Benign prostate hypertrophy HEENT: None Psych: None Musculoskeletal: None Derm: None - Past Surgical History Past Surgical History: No General: Appendectomy Cardiovascular: CABG, Coronary stent, Other Derm: Skin grafts, Skin cancer surgery - Present Medications Home Medications: Ambulatory Orders Medication Instructions Recorded Confirmed Aspirin 81 mg PO QPM 09/16/19 01/08/23 Bumetanide 1 mg PO DAILY 09/16/19 01/08/23 Dabigatran Etexilate Mesylate 150 mg PO BID 09/16/19 01/08/23 [Pradaxa] Losartan [Cozaar] 50 mg PO DAILY 09/16/19 01/08/23 Metoprolol Tartrate 25 mg PO BID 09/16/19 01/08/23 Omeprazole 20 mg PO DAILY 09/16/19 01/08/23 Potassium Chloride 10 meq PO DAILY 09/16/19 01/08/23 Tamsulosin [Flomax] 0.4 mg PO DAILY 09/16/19 01/08/23 metFORMIN [Glucophage] 500 mg PO DAILY 09/16/19 01/08/23 Atorvastatin [Lipitor] 40 mg PO DAILY 01/18/20 01/08/23 Acetaminophen [Tylenol] 650 mg PO Q4HR PRN tablet 01/19/20 01/08/23 cefuroxime axetiL [Ceftin] 500 mg PO Q12H 4 Days #8 tablet 01/19/20 01/08/23 - Allergies Allergies/Adverse Reactions: Allergies Allergy/AdvReac Type Severity Reaction Status Date / Time Sulfa (Sulfonamide Allergy Rash Verified 07/03/23 15:12 Antibiotics) - Social History Does the pt smoke?: No Smoking Status: Never smoker Does the pt drink ETOH?: No Does the pt have substance abuse?: No - Immunizations Immunizations are current?: Yes - POLST Patient has POLST: No POLST Status: Full Code PD ED PE NORMAL - General General: Alert and oriented X 3, No acute distress, Well developed/nourished - HEENT HEENT: Atraumatic, Moist mucous membranes, Pharynx benign - Neck Neck: Supple, no meningeal sign - Cardiac Cardiac: RRR, Strong equal pulses - Respiratory Respiratory: No respiratory distress, Clear bilaterally - Abdomen Abdomen: Normal bowel sounds, Soft, Non tender, Non distended - Derm Derm: Warm and dry - Extremities Extremities: Other (Mild lower extremity edema) - Neuro Neuro: Alert and oriented X 3, No motor deficit, Normal speech Results - Vitals Vitals: Vital Signs - 24 hr 07/03/23 07/03/23 15:02 15:58 Temperature 36.8 C Heart Rate 67 65 Respiratory 20 16 Rate Blood Pressure 181/74 H 163/85 H O2 Saturation 97 97 Oxygen O2 Source Room air PD Medical Decision Making - ED course Complexity details: reviewed results, d/w patient, d/w family ED course: Pt is a 77 yo M presenting with hyponatremia from outpatient labs. Na 127 and Cl 91 today. Yesterday Na 127 and Cl 92. Recent increased use of diuretic. Pt also over last week has intentionally reduced salt intake. Pt is asymptomatic. Based on low Cl and history feel this could be related to hypovolemia or over diuresis. Pt given 1L of NS. Remains asymptomatic here. Pt advised to reduce Bumex dosing and have close follow up early next week for recheck. Pt and family aware of strict return precautions should any symptoms develop. Departure - Departure Disposition: 01 Home, Self Care Clinical Impression: Hyponatremia, Hypochloremia Condition: Stable Instructions: ED Hyponatremia Comments: Your sodium level was too low over the past 2 days (127). This could be due to increased use of your diuretic recently and also decreasing your usual salt intake. We have given you some fluids here as your chloride level was also low. I would go back to your old diuretic dosing with Bumex weekly. I would also recommend over the weekend eating your usual diet Not strictly adhering to a low-salt diet. I would recommend close follow-up early next week for recheck of your labs either with your PCP or walk-in clinic. I do think it may be helpful to see your industrial relations representative to discuss your increased weight recently. Return to the ER if you develop any new or worsening symptoms. Forms: PCP List Discharge Date/Time: 07/03/23 16:57
[2023-07-03 16:08] VITALS: BP 163/85
== END 2023-07-03 16:57 | disposition home or self-care (01) ==
LOC: ED 14:26
DX: E87.1 Hypo-osmolality and hyponatremia (principal); E87.8 Other disorders of electrolyte and fluid balance, not elsewhere classified
CPT/HCPCS: 36415; 80053; 96360; 99283

== ENCOUNTER 2024-02-27 08:00 | Outpatient (CLI) | payer OTHER | END 2024-02-27 23:59 | disposition home or self-care (01) | LOC: LAB.N 08:00 | PROVIDERS: ATTEND Registered Nurse | DX: S81.802A Unspecified open wound, left lower leg, initial encounter (principal) | CPT/HCPCS: 87070; 87077; 87181; 87205 ==